=== PATIENT | female | born 1955 | race Caucasian/White ===

== ENCOUNTER 2023-01-10 23:44 | Emergency (ER) | payer MEDICARE, OTHER ==
[2023-01-10 23:49] LABS: Glucose,Whole Blood 129 mg/dL (70-110)
--- NOTE | 2023-01-11 00:28 | ED ---
General Adult HPI - General Source: EMS Mode of arrival: EMS <Taj Welch - Last Filed: 01/11/23 06:13> <Mendoza Us - Last Filed: 01/11/23 15:41> - General Chief complaint: Altered Mental Status Stated complaint: Altered Mental Time Seen by Provider: 01/10/23 23:48 - History of Present Illness Initial comments: Dictation was produced using [employer]To[employer] dictation software. please excuse any grammatical, word or spelling errors. Chief Complaint: 67-year-old female transferred from [facility] for mental status evaluation History of Present Illness: 67-year-old female she has multiple comorbidities. Patient is a poor historian. She presents to the emergency department via transfer from [facility] for altered mental status. She is also suicidal homicidal. Currently she was at her primary care physician's office as an and was sent to the emergency department for further evaluation. Patient has been having bad thoughts of wanting to kill herself. At [facility] she had blood work and imaging studies performed all of which were reportedly negative. The ROS documented in this emergency department record has been reviewed and confirmed by me. Those systems with pertinent positive or negative responses have been documented in the HPI. All other systems are other negative and/or noncontributory. (Taj Welch) - Related Data Allergies Allergy/AdvReac Type Severity Reaction Status Date / Time amoxicillin [From Augmentin] AdvReac Diarrhea Verified 01/11/23 09:52 clavulanic acid AdvReac Diarrhea Verified 01/11/23 09:52 [From Augmentin] doxycycline AdvReac Diarrhea Verified 01/11/23 09:52 Review of Systems ROS Other: All systems not noted in ROS Statement are negative. <Taj Welch - Last Filed: 01/11/23 06:13> ROS Other: All systems not noted in ROS Statement are negative. <Mendoza Us - Last Filed: 01/11/23 15:41> ROS Statement: Those systems with pertinent positive or pertinent negative responses have been documented in the HPI. Past Medical History Past Medical History: Atrial Fibrillation Past Psychological History: No Psychological Hx Reported Smoking Status: Never smoker Past Alcohol Use History: Occasional Past Drug Use History: None Reported <Taj Welch - Last Filed: 01/11/23 06:13> General Exam <Taj Welch - Last Filed: 01/11/23 06:13> - General Exam Comments Initial Comments: PHYSICAL EXAM: General Impression: Alert and oriented x3, not in acute distress HEENT: Normocephalic atraumatic, extra-ocular movements intact, pupils equal and reactive to light bilaterally, mucous membranes moist. Cardiovascular: Heart regular rate and rhythm Chest: Able to complete full sentences, no retractions, no tachypnea Abdomen: abdomen soft, non-tender, non-distended, no organomegaly Musculoskeletal: Pulses present and equal in all extremities, no peripheral edema Motor: no focal deficits noted Neurological: CN II-XII grossly intact, no focal motor or sensory deficits noted Skin: Intact with no visualized rashes Psych: Anxious (Taj Welch) Course <Taj Welch - Last Filed: 01/11/23 06:13> Vital Signs 01/10/23 01/11/23 23:50 06:16 Temperature 97.6 F Pulse Rate 77 98 Respiratory 16 22 Rate Blood Pressure 122/87 133/95 O2 Sat by Pulse 95 99 Oximetry - Reevaluation(s) Reevaluation #1: 01/11/23 00:28 Patient seen in trauma bay #2. Patient will be in no acute distress. Patient does seem anxious. Vital signs upon arrival are within acceptable limits. [place] sient documentation was reviewed. Labs were reviewed. CBC within acceptable limits. Coag panel within acceptable limits. Urinalysis is normal. Metabolic panel is unremarkable. Tox labs were negative. Patient appears to be medically stable. She does have significant comorbidities. Patient on multiple home medications. Patient will be cleared medically by me for EPS evaluation. (Taj Welch) Medical Decision Making <Taj Welch - Last Filed: 01/11/23 06:13> - Lab Data Result diagrams: 01/11/23 10:15 01/11/23 10:15 <Mendoza Us - Last Filed: 01/11/23 15:41> - Medical Decision Making Was pt. sent in by a medical professional or institution (, PA, SENIOR POLICY ADVISOR, urgent care, hospital, or snf...) When possible be specific @ -Sent from outside emergency department Did you speak to anyone other than the patient for history (EMS, parent, family, police, friend...)? What history was obtained from this source @ -With transferring physician from [facility] Did you review nursing and triage notes (agree or disagree)? Why? @ -I reviewed and agree with nursing and triage notes Were old charts reviewed (outside hosp., previous admission, EMS record, old EKG, old radiological studies, urgent care reports/EKG's, snf records)? Report findings @ -No old charts were reviewed Differential Diagnosis (chest pain, altered mental status, abdominal pain women, abdominal pain men, vaginal bleeding, musculoskeletal, weakness, fever, dyspnea, syncope, headache, dizziness, GI bleed, back pain, seizure, CVA, palpatations, mental health)? @ -Differential Mental Health: Depression, anxiety, bipolar, psychosis, schizophrenia, borderline personality, situational depression, adjustment disorder, behavioral disorder, brain tumor, malingering, substance abuse, encephalopathy, medication reaction, dementia, hypothyroidism, degenerative neurologic disorder, lupus.... This is not meant to be all-inclusive list EKG interpreted by me (3pts min.). @ -ase above X-rays interpreted by me (1pt min.). @ -None done CT interpreted by me (1pt min.). @ -None done U/S interpreted by me (1pt. min.). @ -None done What testing was considered but not performed or refused? (CT, X-rays, U/S, labs)? Why? @ -None What meds were considered but not given or refused? Why? @ -None Did you discuss the management of the patient with other professionals (professionals i.e. , PA, SENIOR POLICY ADVISOR, lab, RT, psych nurse, forensic social worker, truss driver helper, teacher, targeting acquisition officer, caser in)? Give summary @ -Case discussed EPS nurse recommended geriatric psych transfer Was smoking cessation discussed for >3mins.? @ -No Was critical care preformed (if so, how long)? @ -No Were there social determinants of health that impacted care today? How? (Homelessness, low income, unemployed, alcoholism, drug addiction, transportation, low edu. Level, literacy, decrease access to med. care, [facility], rehab)? @ -No Was there de-escalation of care discussed even if they declined (Discuss DNR or withdrawal of care, Hospice)? DNR status @ -No What co-morbidities impacted this encounter? (DM, HTN, Smoking, COPD, CAD, Cancer, CVA, ARF, Chemo, Hep., AIDS, mental health diagnosis, sleep apnea, morbid obesity)? @ -None Was patient admitted / discharged? Hospital course, mention meds given and route, prescriptions, significant lab abnormalities, going to OR and other pertinent info. @ -67-year-old female sent to our emergency department for altered mental status and psychiatric evaluation. Vital signs stable. Physical examination is benign. Patient clinical presentation more consistent with psychiatric illness. EPS evaluate patient recommended psych transfer Undiagnosed new problem with uncertain prognosis? @ -No Drug Therapy requiring intensive monitoring for toxicity (Heparin, Nitro, Insulin, Cardizem)? @ -No Were any procedures done? @ -No Diagnosis/symptom? Acute, or Chronic, or Acute on Chronic? Uncomplicated (without systemic symptoms) or Complicated (systemic symptoms)? @ -1. Psychiatric illness Side effects of treatment? @ -No Exacerbation, Progression, or Severe Exacerbation? @ -No Poses a threat to life or bodily function? How? (Chest pain, USA, IA, pneumonia, PE, COPD, DKA, ARF, appy, cholecystitis, CVA, Diverticulitis, Homicidal, Suicidal, threat to staff... and all critical care pts) @ -yes (Taj Welch) The patient had been evaluated, medically cleared and evaluated by EPS and initial plan was to transfer this patient for geriatric psychiatric care. There is a prolonged wait for geriatric care at this time. Ultimately the patient's is at bedside and the patient herself prefer to be discharged home with outpatient follow-up. I did reevaluate the patient she is not suicidal or homicidal. She is alert and I will respect the wishes of the patient and her to be discharged home. (Mendoza Us) - Lab Data Lab Results 01/10/23 01/11/23 01/11/23 Range/Units 23:47 10:15 10:15 WBC 9.8 (3.8-10.6) k/uL RBC 5.97 H (3.80-5.40) m/uL Hgb 18.9 H (11.4-16.0) gm/dL Hct 54.6 H (34.0-46.0) % MCV 91.4 (80.0-100.0) fL MCH 31.6 (25.0-35.0) pg MCHC 34.6 (31.0-37.0) g/dL RDW 14.3 (11.5-15.5) % Plt Count 189 (150-450) k/uL MPV 7.6 Neutrophils % 83 % Lymphocytes % 10 % Monocytes % 6 % Eosinophils % 1 % Basophils % 0 % Neutrophils # 8.1 H (1.3-7.7) k/uL Lymphocytes # 0.9 L (1.0-4.8) k/uL Monocytes # 0.6 (0-1.0) k/uL Eosinophils # 0.1 (0-0.7) k/uL Basophils # 0.0 (0-0.2) k/uL Sodium 142 (137-145) mmol/L Potassium 3.5 (3.5-5.1) mmol/L Chloride 103 (98-107) mmol/L Carbon Dioxide 25 (22-30) mmol/L Anion Gap 14 mmol/L BUN 53 H (7-17) mg/dL Creatinine 1.07 H (0.52-1.04) mg/dL Est GFR (CKD-EPI)AfAm 63 (>60 ml/min/1.73 sqM) Est GFR (CKD-EPI)NonAf 55 (>60 ml/min/1.73 sqM) Glucose 157 H (74-99) mg/dL POC Glucose (mg/dL) 129 H (70-110) mg/dL POC Glu Cooling Room Attendant ID Britt Hawkins Calcium 9.5 (8.4-10.2) mg/dL Total Bilirubin 1.5 H (0.2-1.3) mg/dL AST 34 (14-36) U/L ALT 23 (4-34) U/L Alkaline Phosphatase 118 (38-126) U/L Total Protein 8.8 H (6.3-8.2) g/dL Albumin 4.7 (3.5-5.0) g/dL Urine Color Urine Appearance (Clear) Urine pH (5.0-8.0) Ur Specific [place] (1.001-1.035) Urine Protein (Negative) Urine Glucose (UA) (Negative) Urine Ketones (Negative) Urine Blood (Negative) Urine Nitrite (Negative) Urine Bilirubin (Negative) Urine Urobilinogen (<2.0) mg/dL Ur Leukocyte Esterase (Negative) Urine Opiates Screen (NotDetected) Ur Oxycodone Screen (NotDetected) Urine Methadone Screen (NotDetected) Ur Propoxyphene Screen (NotDetected) Ur Barbiturates Screen (NotDetected) U Tricyclic Antidepress (NotDetected) Ur Phencyclidine Scrn (NotDetected) Ur Amphetamines Screen (NotDetected) U Methamphetamines Scrn (NotDetected) U Benzodiazepines Scrn (NotDetected) Urine Cocaine Screen (NotDetected) U Marijuana (THC) Screen (NotDetected) Influenza Type A (PCR) (Not Detectd) Influenza Type B (PCR) (Not Detectd) RSV (PCR) (Not Detectd) SARS-CoV-2 (PCR) (Not Detectd) 01/11/23 01/11/23 Range/Units 10:15 13:14 WBC (3.8-10.6) k/uL RBC (3.80-5.40) m/uL Hgb (11.4-16.0) gm/dL Hct (34.0-46.0) % MCV (80.0-100.0) fL MCH (25.0-35.0) pg MCHC (31.0-37.0) g/dL RDW (11.5-15.5) % Plt Count (150-450) k/uL MPV Neutrophils % % Lymphocytes % % Monocytes % % Eosinophils % % Basophils % % Neutrophils # (1.3-7.7) k/uL Lymphocytes # (1.0-4.8) k/uL Monocytes # (0-1.0) k/uL Eosinophils # (0-0.7) k/uL Basophils # (0-0.2) k/uL Sodium (137-145) mmol/L Potassium (3.5-5.1) mmol/L Chloride (98-107) mmol/L Carbon Dioxide (22-30) mmol/L Anion Gap mmol/L BUN (7-17) mg/dL Creatinine (0.52-1.04) mg/dL Est GFR (CKD-EPI)AfAm (>60 ml/min/1.73 sqM) Est GFR (CKD-EPI)NonAf (>60 ml/min/1.73 sqM) Glucose (74-99) mg/dL POC Glucose (mg/dL) (70-110) mg/dL POC Glu Cooling Room Attendant ID Calcium (8.4-10.2) mg/dL Total Bilirubin (0.2-1.3) mg/dL AST (14-36) U/L ALT (4-34) U/L Alkaline Phosphatase (38-126) U/L Total Protein (6.3-8.2) g/dL Albumin (3.5-5.0) g/dL Urine Color Yellow Urine Appearance Clear (Clear) Urine pH 5.0 (5.0-8.0) Ur Specific [place] 1.011 (1.001-1.035) Urine Protein Negative (Negative) Urine Glucose (UA) Negative (Negative) Urine Ketones Trace H (Negative) Urine Blood Negative (Negative) Urine Nitrite Negative (Negative) Urine Bilirubin Negative (Negative) Urine Urobilinogen <2.0 (<2.0) mg/dL Ur Leukocyte Esterase Negative (Negative) Urine Opiates Screen Not Detected (NotDetected) Ur Oxycodone Screen Not Detected (NotDetected) Urine Methadone Screen Not Detected (NotDetected) Ur Propoxyphene Screen Not Detected (NotDetected) Ur Barbiturates Screen Not Detected (NotDetected) U Tricyclic Antidepress Not Detected (NotDetected) Ur Phencyclidine Scrn Not Detected (NotDetected) Ur Amphetamines Screen Not Detected (NotDetected) U Methamphetamines Scrn Not Detected (NotDetected) U Benzodiazepines Scrn Not Detected (NotDetected) Urine Cocaine Screen Not Detected (NotDetected) U Marijuana (THC) Screen Not Detected (NotDetected) Influenza Type A (PCR) Not Detected (Not Detectd) Influenza Type B (PCR) Not Detected (Not Detectd) RSV (PCR) Not Detected (Not Detectd) SARS-CoV-2 (PCR) Not Detected (Not Detectd) Disposition <Taj Welch - Last Filed: 01/11/23 06:13> Is patient prescribed a controlled substance at d/c from ED?: No Time of Disposition: 15:41 <Mendoza Us - Last Filed: 01/11/23 15:41> Clinical Impression: Suicidal ideation, Depression Disposition: HOME SELF-CARE Condition: Fair Instructions (If sedation given, give patient instructions): Altered Mental Status (ED), Depression (ED) Additional Instructions: Please follow up as discussed with the EPS nurse please return with worsening or changing symptoms. Referrals: None,Stated [Primary Care Provider] - 1-2 days
[2023-01-11 10:24] LABS: Basophils % (A) 0 %; Eosinophils # (A) 0.1 k/uL (0-0.7); Eosinophils % (A) 1 %; HCT 54.6 % (34.0-46.0); HGB 18.9 gm/dL (11.4-16.0); Lymphocytes # (A) 0.9 k/uL (1.0-4.8); Lymphocytes % (A) 10 %; MCH 31.6 pg (25.0-35.0); MCHC 34.6 g/dL (31.0-37.0); MCV 91.4 fL (80.0-100.0); Mean Platelet Volume 7.6; Monocytes # (A) 0.6 k/uL (0-1.0); Monocytes % (A) 6 %; Neutrophils # (A) 8.1 k/uL (1.3-7.7); Neutrophils % (A) 83 %; Platelet Count 189 k/uL (150-450); RBC 5.97 m/uL (3.80-5.40); RDW 14.3 % (11.5-15.5); WBC 9.8 k/uL (3.8-10.6)
[2023-01-11] MEDS ORDERED: LORazepam 1 MG TAB PO STA (10:36)
[2023-01-11 10:41] LABS: ALT 23 U/L (4-34); AST 34 U/L (14-36); African American GFR (CKD) 63 (>60 ml/min/1.73 sqM); Albumin 4.7 g/dL (3.5-5.0); Alkaline Phosphatase 118 U/L (38-126); Anion Gap 14 mmol/L; Blood Urea Nitrogen 53 mg/dL (7-17); Calcium 9.5 mg/dL (8.4-10.2); Carbon Dioxide 25 mmol/L (22-30); Chloride 103 mmol/L (98-107); Glucose 157 mg/dL (74-99); Non-African American GFR(CKD) 55 (>60 ml/min/1.73 sqM); Potassium 3.5 mmol/L (3.5-5.1); Sodium 142 mmol/L (137-145); Total Bilirubin 1.5 mg/dL (0.2-1.3); Total Protein 8.8 g/dL (6.3-8.2)
[2023-01-11 13:24] LABS: Appearance,Urine Clear (Clear); Bilirubin,Urine Negative (Negative); Blood,Urine Negative (Negative); Color,Urine Yellow; Glucose,Urine (UA) Negative (Negative); Ketones,Urine Trace (Negative); Leukocyte Esterase,Urine Negative (Negative); Nitrite,Urine Negative (Negative); Protein,Urine Negative (Negative); Specific Gravity,Urine 1.011 (1.001-1.035); Urobilinogen,Urine <2.0 mg/dL (<2.0)
[2023-01-11 13:38] LABS: Amphetamine Screen,Urine Not Detected (NotDetected); Barbiturate Screen,Urine Not Detected (NotDetected); Benzodiazepines Screen,Urine Not Detected (NotDetected); Cocaine Screen,Urine Not Detected (NotDetected); Methadone Screen, Urine Not Detected (NotDetected); Opiate Screen,Urine Not Detected (NotDetected); Oxycodone Screen, Urine Not Detected (NotDetected); Phencyclidine Screen,Urine Not Detected (NotDetected); Tricyclic Antidepressant,Urine Not Detected (NotDetected); Urn Cannabinoid Scrn Not Detected (NotDetected)
[2023-01-11 15:59] VITALS: BP 138/96; PULSE 89; RESP 18; TEMP 98.1
== END 2023-01-11 16:00 | disposition home or self-care (01) ==
LOC: EC 23:44
DX: F32.A Depression, unspecified (principal); R45.851 Suicidal ideations; Z20.822 Contact with and (suspected) exposure to COVID-19; Z88.0 Allergy status to penicillin; Z88.1 Allergy status to other antibiotic agents
CPT/HCPCS: 36415; 80053; 80306; 81003; 82075; 85025; 87636; 99285

== ENCOUNTER 2023-01-16 10:33 | Emergency (ER) | payer MEDICARE, OTHER ==
--- NOTE | 2023-01-16 12:37 | ED ---
General Adult HPI <Lyle Barone - Last Filed: 01/16/23 21:48> - General Source: patient, EMS, RN notes reviewed Mode of arrival: EMS Limitations: altered mental status <Gavino Gardner - Last Filed: 01/18/23 21:01> - General Chief complaint: Altered Mental Status Stated complaint: AMS Time Seen by Provider: 01/16/23 12:02 - History of Present Illness Initial comments: Patient is a pleasant [age]-year-old female presenting to the emergency department with concern for altered mental status. Patient is a poor historian and does not offer much history. Patient does request help however will not state why she needs help her what is bothering her. (Gavino Gardner) - Related Data Home Medications Medication Instructions Recorded Confirmed Famotidine 20 mg PO BID 01/11/23 01/16/23 Furosemide [Lasix] 20 mg PO DAILY 01/11/23 01/16/23 Levofloxacin [Levaquin] 500 mg PO DAILY 01/11/23 01/16/23 Rivaroxaban [Xarelto] 20 mg PO HS 01/11/23 01/16/23 carvediloL [Coreg] 12.5 mg PO BID 01/11/23 01/16/23 methIMAzole [Tapazole] 5 mg PO DAILY 01/11/23 01/16/23 Allergies Allergy/AdvReac Type Severity Reaction Status Date / Time amoxicillin [From Augmentin] AdvReac Diarrhea Verified 01/16/23 12:02 clavulanic acid AdvReac Diarrhea Verified 01/16/23 12:02 [From Augmentin] doxycycline AdvReac Diarrhea Verified 01/16/23 12:02 Review of Systems ROS Other: All systems not noted in ROS Statement are negative. <Lyle Barone - Last Filed: 01/16/23 21:48> ROS Other: All systems not noted in ROS Statement are negative. Limitations: ROS unobtainable due to patients medical condition <Gavino Gardner - Last Filed: 01/18/23 21:01> ROS Statement: Those systems with pertinent positive or pertinent negative responses have been documented in the HPI. Past Medical History Past Medical History: Atrial Fibrillation Past Psychological History: No Psychological Hx Reported Smoking Status: Never smoker Past Alcohol Use History: Occasional Past Drug Use History: None Reported <Gavino Gardner - Last Filed: 01/18/23 21:01> General Exam Limitations: altered mental status General appearance: alert, in no apparent distress Head exam: Present: atraumatic Eye exam: Present: normal appearance, PERRL, EOMI ENT exam: Present: mucous membranes dry Neck exam: Present: normal inspection. Absent: tenderness, meningismus Respiratory exam: Present: normal lung sounds bilaterally Cardiovascular Exam: Present: regular rate, irregular rhythm GI/Abdominal exam: Present: soft. Absent: tenderness Extremities exam: Present: normal inspection Neurological exam: Present: alert. Absent: motor sensory deficit Psychiatric exam: Present: depressed (Patient is tearful and requesting help however offered no further history) Skin exam: Present: normal color <Gavino Gardner - Last Filed: 01/18/23 21:01> Course Vital Signs 01/16/23 01/16/23 01/16/23 11:02 13:00 14:30 Temperature 97.0 F L Pulse Rate 58 L 64 59 L Respiratory 18 20 16 Rate Blood Pressure 138/92 141/108 128/113 O2 Sat by Pulse 96 96 95 Oximetry 01/16/23 01/16/23 01/16/23 15:00 15:30 16:00 Temperature Pulse Rate 63 62 58 L Respiratory 20 22 19 Rate Blood Pressure 131/87 151/95 124/84 O2 Sat by Pulse 97 96 96 Oximetry 01/16/23 01/16/23 01/16/23 16:30 17:00 17:30 Temperature Pulse Rate 65 64 73 Respiratory 22 20 21 Rate Blood Pressure 143/100 148/96 129/87 O2 Sat by Pulse 96 96 96 Oximetry 01/16/23 01/17/23 19:00 00:26 Temperature 98.1 F Pulse Rate 70 78 Respiratory 16 18 Rate Blood Pressure 135/90 138/92 O2 Sat by Pulse 96 98 Oximetry EKG Findings - EKG Results: EKG: interpreted by ERMD (Nonspecific ST-T), normal axis, normal QRS EKG shows: atrial fibrillation <Gavino Gardner - Last Filed: 01/18/23 21:01> Medical Decision Making - Lab Data Result diagrams: 01/16/23 12:54 01/16/23 12:54 <Lyle Barone - Last Filed: 01/16/23 21:48> - Lab Data Result diagrams: 01/16/23 12:54 01/16/23 12:54 <Gavino Gardner - Last Filed: 01/18/23 21:01> - Medical Decision Making I interviewed the patient for purpose of filing the clinical certification. The patient tearful, stating that she wants to go home but cannot go home. Questioned about homicidal ideation she agrees. (Lyle Barone) Case was discussed with Dr. Dudley. Previous visit reviewed. Patient has been emotional at times with evaluation. We will have mental health services evaluate patient. (Gavino Gardner) - Lab Data Lab Results 01/16/23 01/16/23 01/16/23 Range/Units 12:54 12:54 12:54 WBC 8.0 (3.8-10.6) k/uL RBC 5.54 H (3.80-5.40) m/uL Hgb 17.5 H (11.4-16.0) gm/dL Hct 51.0 H (34.0-46.0) % MCV 92.1 (80.0-100.0) fL MCH 31.7 (25.0-35.0) pg MCHC 34.4 (31.0-37.0) g/dL RDW 14.3 (11.5-15.5) % Plt Count 160 (150-450) k/uL MPV 8.0 Neutrophils % 79 % Lymphocytes % 13 % Monocytes % 6 % Eosinophils % 1 % Basophils % 1 % Neutrophils # 6.3 (1.3-7.7) k/uL Lymphocytes # 1.0 (1.0-4.8) k/uL Monocytes # 0.5 (0-1.0) k/uL Eosinophils # 0.0 (0-0.7) k/uL Basophils # 0.1 (0-0.2) k/uL PT 12.5 H (9.0-12.0) sec INR 1.2 H (<1.2) APTT 23.5 (22.0-30.0) sec Sodium (137-145) mmol/L Potassium (3.5-5.1) mmol/L Chloride (98-107) mmol/L Carbon Dioxide (22-30) mmol/L Anion Gap mmol/L BUN (7-17) mg/dL Creatinine (0.52-1.04) mg/dL Est GFR (CKD-EPI)AfAm (>60 ml/min/1.73 sqM) Est GFR (CKD-EPI)NonAf (>60 ml/min/1.73 sqM) Glucose (74-99) mg/dL Calcium (8.4-10.2) mg/dL Total Bilirubin (0.2-1.3) mg/dL AST (14-36) U/L ALT (4-34) U/L Alkaline Phosphatase (38-126) U/L Troponin I (0.000-0.034) ng/mL Total Protein (6.3-8.2) g/dL Albumin (3.5-5.0) g/dL Urine Color Urine Appearance (Clear) Urine pH (5.0-8.0) Ur Specific [place] (1.001-1.035) Urine Protein (Negative) Urine Glucose (UA) (Negative) Urine Ketones (Negative) Urine Blood (Negative) Urine Nitrite (Negative) Urine Bilirubin (Negative) Urine Urobilinogen (<2.0) mg/dL Ur Leukocyte Esterase (Negative) Urine Opiates Screen Not Detected (NotDetected) Ur Oxycodone Screen Not Detected (NotDetected) Urine Methadone Screen Not Detected (NotDetected) Ur Propoxyphene Screen Not Detected (NotDetected) Ur Barbiturates Screen Not Detected (NotDetected) U Tricyclic Antidepress Not Detected (NotDetected) Ur Phencyclidine Scrn Not Detected (NotDetected) Ur Amphetamines Screen Not Detected (NotDetected) U Methamphetamines Scrn Not Detected (NotDetected) U Benzodiazepines Scrn Not Detected (NotDetected) Urine Cocaine Screen Not Detected (NotDetected) U Marijuana (THC) Screen Not Detected (NotDetected) Coronavirus (PCR) (Not Detectd) 01/16/23 01/16/23 01/16/23 Range/Units 12:54 12:54 12:54 WBC (3.8-10.6) k/uL RBC (3.80-5.40) m/uL Hgb (11.4-16.0) gm/dL Hct (34.0-46.0) % MCV (80.0-100.0) fL MCH (25.0-35.0) pg MCHC (31.0-37.0) g/dL RDW (11.5-15.5) % Plt Count (150-450) k/uL MPV Neutrophils % % Lymphocytes % % Monocytes % % Eosinophils % % Basophils % % Neutrophils # (1.3-7.7) k/uL Lymphocytes # (1.0-4.8) k/uL Monocytes # (0-1.0) k/uL Eosinophils # (0-0.7) k/uL Basophils # (0-0.2) k/uL PT (9.0-12.0) sec INR (<1.2) APTT (22.0-30.0) sec Sodium 133 L (137-145) mmol/L Potassium 3.4 L (3.5-5.1) mmol/L Chloride 104 (98-107) mmol/L Carbon Dioxide 26 (22-30) mmol/L Anion Gap 3 mmol/L BUN 36 H (7-17) mg/dL Creatinine 0.76 (0.52-1.04) mg/dL Est GFR (CKD-EPI)AfAm >90 (>60 ml/min/1.73 sqM) Est GFR (CKD-EPI)NonAf 83 (>60 ml/min/1.73 sqM) Glucose 113 H (74-99) mg/dL Calcium 8.4 (8.4-10.2) mg/dL Total Bilirubin 1.5 H (0.2-1.3) mg/dL AST 42 H (14-36) U/L ALT 22 (4-34) U/L Alkaline Phosphatase 84 (38-126) U/L Troponin I 0.023 (0.000-0.034) ng/mL Total Protein 7.2 (6.3-8.2) g/dL Albumin 3.8 (3.5-5.0) g/dL Urine Color Yellow Urine Appearance Clear (Clear) Urine pH 5.0 (5.0-8.0) Ur Specific [place] 1.016 (1.001-1.035) Urine Protein Negative (Negative) Urine Glucose (UA) Negative (Negative) Urine Ketones Trace H (Negative) Urine Blood Negative (Negative) Urine Nitrite Negative (Negative) Urine Bilirubin Negative (Negative) Urine Urobilinogen <2.0 (<2.0) mg/dL Ur Leukocyte Esterase Negative (Negative) Urine Opiates Screen (NotDetected) Ur Oxycodone Screen (NotDetected) Urine Methadone Screen (NotDetected) Ur Propoxyphene Screen (NotDetected) Ur Barbiturates Screen (NotDetected) U Tricyclic Antidepress (NotDetected) Ur Phencyclidine Scrn (NotDetected) Ur Amphetamines Screen (NotDetected) U Methamphetamines Scrn (NotDetected) U Benzodiazepines Scrn (NotDetected) Urine Cocaine Screen (NotDetected) U Marijuana (THC) Screen (NotDetected) Coronavirus (PCR) (Not Detectd) 01/16/23 Range/Units 22:26 WBC (3.8-10.6) k/uL RBC (3.80-5.40) m/uL Hgb (11.4-16.0) gm/dL Hct (34.0-46.0) % MCV (80.0-100.0) fL MCH (25.0-35.0) pg MCHC (31.0-37.0) g/dL RDW (11.5-15.5) % Plt Count (150-450) k/uL MPV Neutrophils % % Lymphocytes % % Monocytes % % Eosinophils % % Basophils % % Neutrophils # (1.3-7.7) k/uL Lymphocytes # (1.0-4.8) k/uL Monocytes # (0-1.0) k/uL Eosinophils # (0-0.7) k/uL Basophils # (0-0.2) k/uL PT (9.0-12.0) sec INR (<1.2) APTT (22.0-30.0) sec Sodium (137-145) mmol/L Potassium (3.5-5.1) mmol/L Chloride (98-107) mmol/L Carbon Dioxide (22-30) mmol/L Anion Gap mmol/L BUN (7-17) mg/dL Creatinine (0.52-1.04) mg/dL Est GFR (CKD-EPI)AfAm (>60 ml/min/1.73 sqM) Est GFR (CKD-EPI)NonAf (>60 ml/min/1.73 sqM) Glucose (74-99) mg/dL Calcium (8.4-10.2) mg/dL Total Bilirubin (0.2-1.3) mg/dL AST (14-36) U/L ALT (4-34) U/L Alkaline Phosphatase (38-126) U/L Troponin I (0.000-0.034) ng/mL Total Protein (6.3-8.2) g/dL Albumin (3.5-5.0) g/dL Urine Color Urine Appearance (Clear) Urine pH (5.0-8.0) Ur Specific [place] (1.001-1.035) Urine Protein (Negative) Urine Glucose (UA) (Negative) Urine Ketones (Negative) Urine Blood (Negative) Urine Nitrite (Negative) Urine Bilirubin (Negative) Urine Urobilinogen (<2.0) mg/dL Ur Leukocyte Esterase (Negative) Urine Opiates Screen (NotDetected) Ur Oxycodone Screen (NotDetected) Urine Methadone Screen (NotDetected) Ur Propoxyphene Screen (NotDetected) Ur Barbiturates Screen (NotDetected) U Tricyclic Antidepress (NotDetected) Ur Phencyclidine Scrn (NotDetected) Ur Amphetamines Screen (NotDetected) U Methamphetamines Scrn (NotDetected) U Benzodiazepines Scrn (NotDetected) Urine Cocaine Screen (NotDetected) U Marijuana (THC) Screen (NotDetected) Coronavirus (PCR) Not Detected (Not Detectd) Disposition <Lyle Barone - Last Filed: 01/16/23 21:48> Is patient prescribed a controlled substance at d/c from ED?: No <Gavino Gardner - Last Filed: 01/18/23 21:01> Clinical Impression: Depression Disposition: TRANSFER TO PSYCH HOSP/UNIT Referrals: None,Stated [Primary Care Provider] - 1-2 days
[2023-01-16 13:26] LABS: Basophils # (A) 0.1 k/uL (0-0.2); Basophils % (A) 1 %; Eosinophils % (A) 1 %; HGB 17.5 gm/dL (11.4-16.0); Lymphocytes % (A) 13 %; MCH 31.7 pg (25.0-35.0); MCHC 34.4 g/dL (31.0-37.0); MCV 92.1 fL (80.0-100.0); Monocytes # (A) 0.5 k/uL (0-1.0); Monocytes % (A) 6 %; Neutrophils # (A) 6.3 k/uL (1.3-7.7); Neutrophils % (A) 79 %; Platelet Count 160 k/uL (150-450); RBC 5.54 m/uL (3.80-5.40); RDW 14.3 % (11.5-15.5)
[2023-01-16 13:43] LABS: ALT 22 U/L (4-34); African American GFR (CKD) >90 (>60 ml/min/1.73 sqM); Albumin 3.8 g/dL (3.5-5.0); Anion Gap 3 mmol/L; Blood Urea Nitrogen 36 mg/dL (7-17); Calcium 8.4 mg/dL (8.4-10.2); Carbon Dioxide 26 mmol/L (22-30); Chloride 104 mmol/L (98-107); Glucose 113 mg/dL (74-99); Non-African American GFR(CKD) 83 (>60 ml/min/1.73 sqM); Sodium 133 mmol/L (137-145); Total Bilirubin 1.5 mg/dL (0.2-1.3); Total Protein 7.2 g/dL (6.3-8.2)
[2023-01-16 13:48] LABS: INR 1.2 (<1.2); Partial Thromboplastin Time 23.5 sec (22.0-30.0); Prothrombin Time 12.5 sec (9.0-12.0)
[2023-01-16 13:53] LABS: AST 42 U/L (14-36); Alkaline Phosphatase 84 U/L (38-126); Potassium 3.4 mmol/L (3.5-5.1)
--- NOTE | 2023-01-16 14:11 | CT ---
EXAMINATION TYPE: CT brain wo con DATE OF EXAM: 01/16/2023 COMPARISON: Outside exam 01/10/2023 HISTORY: 67-year-old female confusion, altered mental status TECHNIQUE: Examination was done in axial plane without intravenous contrast. Coronal and sagittal r econstructions performed. CT DLP: 1129.4 mGycm Automated exposure control for dose reduction was used. FINDINGS: There is no evidence of acute intracranial hemorrhage, acute ischemic changes, mass, mass-effect, or extra-axial fluid collection. There is no effacement of cerebral sulci or basal subarachnoid cister ns. There is no hydrocephalus. There is no midline shift. Skaggs-white matter distinction is preserv ed. Scattered dental caries. Paranasal sinuses and mastoid air cells well pneumatized. Orbits and globes are intact. IMPRESSION: No acute intracranial abnormality seen.
--- NOTE | 2023-01-16 14:25 | XR ---
EXAMINATION TYPE: XR chest 2V DATE OF EXAM: 01/16/2023 COMPARISON: None INDICATION: Altered mental status TECHNIQUE: Frontal and lateral views of the chest are obtained. FINDINGS: The heart size is normal. The pulmonary vasculature is normal. The lungs are clear. IMPRESSION: 1. No acute pulmonary process.
[2023-01-16 15:01] LABS: Appearance,Urine Clear (Clear); Bilirubin,Urine Negative (Negative); Blood,Urine Negative (Negative); Color,Urine Yellow; Glucose,Urine (UA) Negative (Negative); Ketones,Urine Trace (Negative); Leukocyte Esterase,Urine Negative (Negative); Nitrite,Urine Negative (Negative); Protein,Urine Negative (Negative); Specific Gravity,Urine 1.016 (1.001-1.035); Urobilinogen,Urine <2.0 mg/dL (<2.0)
[2023-01-16 15:35] LABS: Amphetamine Screen,Urine Not Detected (NotDetected); Barbiturate Screen,Urine Not Detected (NotDetected); Benzodiazepines Screen,Urine Not Detected (NotDetected); Cocaine Screen,Urine Not Detected (NotDetected); Methadone Screen, Urine Not Detected (NotDetected); Opiate Screen,Urine Not Detected (NotDetected); Oxycodone Screen, Urine Not Detected (NotDetected); Phencyclidine Screen,Urine Not Detected (NotDetected); Tricyclic Antidepressant,Urine Not Detected (NotDetected); Urn Cannabinoid Scrn Not Detected (NotDetected)
[2023-01-16] MEDS ORDERED: POTASSIUM CHLORIDE ER 20 MEQ TAB.ER PO STA (19:01)
[2023-01-16] MEDS ORDERED: SODIUM CHLORIDE 0.9% 1,000 ML IV ONE (19:01)
[2023-01-16] MEDS ORDERED: carvediloL 12.5 MG TAB PO SCH (19:30)
[2023-01-16] MEDS ORDERED: FAMOTIDINE 20 MG TAB PO SCH (21:00)
[2023-01-16] MEDS ORDERED: RIVAROXABAN 20 MG TAB PO SCH (21:00)
[2023-01-17 00:27] VITALS: BP 138/92; PULSE 78; RESP 18; TEMP 98.1
[2023-01-17] MEDS ORDERED: methIMAzole 5 MG TAB PO SCH (09:00)
== END 2023-01-17 00:27 ==
LOC: EC 10:33
DX: F32.A Depression, unspecified (principal); I48.91 Unspecified atrial fibrillation; Z79.01 Long term (current) use of anticoagulants; Z88.0 Allergy status to penicillin; Z88.6 Allergy status to analgesic agent; Z88.8 Allergy status to other drugs, medicaments and biological substances; Z20.822 Contact with and (suspected) exposure to COVID-19
CPT/HCPCS: 36415; 70450; 71046; 80053; 80306; 81003; 82075; 84484; 85025; 85610; 85730; 87635; 93005; 96360; 99285

== ENCOUNTER 2024-01-07 22:45 | Inpatient (IN) | payer MEDICARE, OTHER ==
[2024-01-07] MEDS ORDERED: HEPARIN SODIUM 1,000 UN/ML (10ML VL) IV PRN (23:04)
--- NOTE | 2024-01-07 23:09 | ED ---
General Adult HPI - General Chief complaint: Altered Mental Status Stated complaint: PE Time Seen by Provider: 01/07/24 22:47 Source: patient, EMS Mode of arrival: EMS Limitations: no limitations - History of Present Illness Initial comments: Dictation was produced using [employer] dictation software. please excuse any grammatical, word or spelling errors. Chief Complaint: 68-year-old female transferred from outside hospital for UTI, encephalopathy and PE History of Present Illness: Patient 68-year-old female she is a poor historian. According to transfer documentation patient was found altered at home. She was worked up at [facility] where she was found to have multiple subsegmental PEs, UTI and encephalopathy. She had extensive workup was given doxycycline, heparin and Rocephin. Patient allegedly has a history of bipolar disease. A pparently there was concern that patient is noncompliant with her medications. Patient has no complaints. Unable to obtain ROS secondary to patient's mental status - Related Data Home Medications Medication Instructions Recorded Confirmed Famotidine 20 mg PO BID 01/11/23 01/16/23 Furosemide [Lasix] 20 mg PO DAILY 01/11/23 01/16/23 Levofloxacin [Levaquin] 500 mg PO DAILY 01/11/23 01/16/23 Rivaroxaban [Xarelto] 20 mg PO HS 01/11/23 01/16/23 carvediloL [Coreg] 12.5 mg PO BID 01/11/23 01/16/23 methIMAzole [Tapazole] 5 mg PO DAILY 01/11/23 01/16/23 Allergies Allergy/AdvReac Type Severity Reaction Status Date / Time amoxicillin [From Augmentin] AdvReac Diarrhea Verified 01/16/23 12:02 clavulanic acid AdvReac Diarrhea Verified 01/16/23 12:02 [From Augmentin] doxycycline AdvReac Diarrhea Verified 01/16/23 12:02 Review of Systems ROS Statement: Those systems with pertinent positive or pertinent negative responses have been documented in the HPI. ROS Other: All systems not noted in ROS Statement are negative. Past Medical History Past Medical History: Atrial Fibrillation History of Any Multi-Drug Resistant Organisms: None Reported Additional Past Surgical History / Comment(s): "3 c-sections and a knee surgery" Past Psychological History: No Psychological Hx Reported Smoking Status: Never smoker Past Alcohol Use History: Occasional Past Drug Use History: None Reported General Exam - General Exam Comments Initial Comments: PHYSICAL EXAM: General Impression: Alert and oriented x3, not in acute distress HEENT: Normocephalic atraumatic, extra-ocular movements intact, pupils equal and reactive to light bilaterally, mucous membranes moist. Cardiovascular: Heart regular rate and rhythm Chest: Able to complete full sentences, no retractions, no tachypnea Abdomen: abdomen soft, non-tender, non-distended, no organomegaly Musculoskeletal: Pulses present and equal in all extremities, no peripheral edema Motor: no focal deficits noted Neurological: CN II-XII grossly intact, no focal motor or sensory deficits noted Skin: Intact with no visualized rashes Psych: paranoid, tangential speech Limitations: no limitations Course Vital Signs 01/07/24 22:55 Temperature 97.3 F L Pulse Rate 82 Respiratory 18 Rate Blood Pressure 156/102 O2 Sat by Pulse 100 Oximetry EKG Findings - EKG Comments: EKG Findings:: My EKG interpretation: Ventricular rate 70, A-fib, QRS 89, QTc 410. , no QTC prolongation, no ST or T-wave changes noted. Patient has a history of A-fib.. Overall, this EKG is unremarkable Medical Decision Making - Medical Decision Making Was pt. sent in by a medical professional or institution (, PA, COOK APPRENTICE, urgent care, hospital, or fdc...) When possible be specific @ -Transferred from outside hospital Did you speak to anyone other than the patient for history (EMS, parent, family, police, friend...)? What history was obtained from this source @ -No Did you review nursing and triage notes (agree or disagree)? Why? @ -I reviewed and agree with nursing and triage notes Were old charts reviewed (outside hosp., previous admission, EMS record, old EKG, old radiological studies, urgent care reports/EKG's, fdc records)? Report findings @ -Transfer notes reviewed as described above Differential Diagnosis (chest pain, altered mental status, abdominal pain women, abdominal pain men, vaginal bleeding, musculoskeletal, weakness, fever, dyspnea, syncope, headache, dizziness, GI bleed, back pain, seizure, CVA, palpatations, mental health)? @ -Differential Dyspnea: Coronary syndrome, arrhythmia, tamponade, asthma, COPD, pulmonary embolism, pneumonia, pneumothorax, pulmonary effusion, anaphylaxis, diabetic ketoacidosis, flailed chest, pulmonary contusion, diaphragmatic rupture, anemia, neuromusc ular, this is not meant to be an all-inclusive list. EKG interpreted by me (3pts min.). @ -See above X-rays interpreted by me (1pt min.). @ -None done CT interpreted by me (1pt min.). @ -None done U/S interpreted by me (1pt. min.). @ -None done What testing was considered but not performed or refused? (CT, X-rays, U/S, labs)? Why? @ -None What meds were considered but not given or refused? Why? @ -None Did you discuss the management of the patient with other professionals (professionals i.e. , PA, COOK APPRENTICE, lab, RT, psych nurse, social service agency director, playground director, teacher, community cultural development officer, case monitor)? Give summary @ -Case discussed with hospitalist for admission. Was smoking cessation discussed for >3mins.? @ -No Was critical care preformed (if so, how long)? @ -No Were there social determinants of health that impacted care today? How? (Homelessness, low income, unemployed, alcoholism, drug addiction, transportation, low edu. Level, literacy, decrease access to med. care, skilled nursing, rehab)? @ -No Was there de-escalation of care discussed even if they declined (Discuss DNR or withdrawal of care, Hospice)? DNR status @ -No What co-morbidities impacted this encounter? (DM, HTN, Smoking, COPD, CAD, Cancer, CVA, ARF, Chemo, Hep., AIDS, mental health diagnosis, sleep apnea, morbid obesity)? @ -None Was patient admitted / discharged? Hospital course, mention meds given and route, prescriptions, significant lab abnormalities, going to OR and other pertinent info. @ -68-year-old female transferred from outside emergency department for PEs and UTI and encephalopathy. Vital signs are within acceptable limits. Patient well-appearing at the bedside. She does have some psychotic features. Patient will be admitted. She is continued on heparin. Patient received ceftriaxone and doxycycline. Will be admitted to medicine. Undiagnosed new problem with uncertain prognosis? @ -No Drug Therapy requiring intensive monitoring for toxicity (Heparin, Nitro, Insulin, Cardizem)? @ -No Were any procedures done? @ -No Diagnosis/symptom? Acute, or Chronic, or Acute on Chronic? Uncomplicated (without systemic symptoms) or Complicated (systemic symptoms)? @ -PE, UTI, psychosis Side effects of treatment? @ -No Exacerbation, Progression, or Severe Exacerbation? @ -No Poses a threat to life or bodily function? How? (Chest pain, [place], [place], pneumonia, PE, COPD, DKA, ARF, appy, cholecystitis, CVA, Diverticulitis, Homicidal, Suicidal, threat to staff... and all critical care pts) @ -yes - Lab Data Result diagrams: 01/07/24 23:15 Lab Results 01/07/24 01/07/24 Range/Units 23:15 23:15 WBC 8.7 (3.8-10.6) k/uL RBC 5.20 (3.80-5.40) m/uL Hgb 16.3 H (11.4-16.0) gm/dL Hct 47.7 H (34.0-46.0) % MCV 91.8 (80.0-100.0) fL MCH 31.4 (25.0-35.0) pg MCHC 34.2 (31.0-37.0) g/dL RDW 14.4 (11.5-15.5) % Plt Count 173 (150-450) k/uL MPV 7.7 Neutrophils % 81 % Lymphocytes % 13 % Monocytes % 5 % Eosinophils % 1 % Basophils % 0 % Neutrophils # 7.0 (1.3-7.7) k/uL Lymphocytes # 1.1 (1.0-4.8) k/uL Monocytes # 0.4 (0-1.0) k/uL Eosinophils # 0.1 (0-0.7) k/uL Basophils # 0.0 (0-0.2) k/uL Troponin I <0.012 (0.000-0.034) ng/mL Disposition Clinical Impression: Pulmonary emboli, UTI (urinary tract infection) Disposition: ADMITTED IP TO THIS [facility] Condition: Fair Referrals: Smith Beasley DO [Primary Care Provider] - 1-2 days Decision Time: 00:01
[2024-01-07] MEDS: HEPARIN SOD,PORK IN 0.45% NACL 25,000 UNIT in 0.45% NACL 1 250ML.BAG IV SCH (23:25)
[2024-01-07 23:29] LABS: Basophils % (A) 0 %; Eosinophils # (A) 0.1 k/uL (0-0.7); Eosinophils % (A) 1 %; HCT 47.7 % (34.0-46.0); HGB 16.3 gm/dL (11.4-16.0); Lymphocytes # (A) 1.1 k/uL (1.0-4.8); Lymphocytes % (A) 13 %; MCH 31.4 pg (25.0-35.0); MCHC 34.2 g/dL (31.0-37.0); MCV 91.8 fL (80.0-100.0); Mean Platelet Volume 7.7; Monocytes # (A) 0.4 k/uL (0-1.0); Monocytes % (A) 5 %; Neutrophils % (A) 81 %; Platelet Count 173 k/uL (150-450); RDW 14.4 % (11.5-15.5); WBC 8.7 k/uL (3.8-10.6)
[2024-01-07] MEDS ORDERED: NALOXONE 0.4 MG/ML 1 ML VIAL IV PRN (23:57)
[2024-01-08 00:24] LABS: African American GFR (CKD) >90 (>60 ml/min/1.73 sqM); Anion Gap 10 mmol/L; Blood Urea Nitrogen 20 mg/dL (7-17); Carbon Dioxide 26 mmol/L (22-30); Chloride 99 mmol/L (98-107); Glucose 132 mg/dL (74-99); Non-African American GFR(CKD) >90 (>60 ml/min/1.73 sqM); Potassium 3.7 mmol/L (3.5-5.1); Sodium 135 mmol/L (137-145)
[2024-01-08] MEDS: SODIUM CHLORIDE 0.9% 1,000 ML IV SCH (00:30)
[2024-01-08] MEDS: HEPARIN SODIUM 1,000 UN/ML (10ML VL) IV ONE (02:06)
--- NOTE | 2024-01-08 05:45 | P.CNPUL ---
History of Present Illness Consult date: 01/08/24 Requesting physician: Taj Welch Reason for consult: pulmonary embolism Chief complaint: Altered mental status, medication noncompliance History of present illness: Patient is a 68-year-old white female reportedly with past medical history significant for atrial fibrillation. She was transferred from [facility] late last night for possible urinary tract infection and pulmonary embolism. Patient is currently lying in bed, not offering much information. She becomes tearful when asked any questions. She is alert and oriented x 3. She actually denies any complaints, and when pressed further she states that she is "lying". She will not elaborate on this. Questional background of mental illness. On review of outside facility documentation, patient reportedly had not been taking her medications as prescribed at home. She apparently had a visiting nurse come to her home, who noted her to be confused in bed and covered in urine and feces. On arrival to the outside facility she had a urinalysis concerning for UTI. She was given a dose of Rocephin. Urine toxicology screen was negative at outside facility. She was also noted to be hypoxic, placed on supplemental oxygen. Chest CTA identified a nonocclusive PE within the right main pulmonary artery, as well as, a small segmental and sub-segmental occlusive pulmonary embolism within the right lower lobe. No CT evidence of right-sided heart strain. There is also a small right-sided pleural effusion and likely asso ciated atelectasis. She denies any history of DVT/PE. Xarelto is listed as a home medication, likely for her chronic atrial fibrillation, however; as stated above, thought not to be taking her medications as ordered. On my evaluation, patient is still in the emergency department. Rhythm on bedside monitor appears to be atrial fibrillation with a rate of 106 bpm. Blood pressure is hypertensive. Currently on 2 L/min nasal cannula, SpO2 is 99%. She is currently on the high intensity heparin protocol. Currently, she denies any shortness of breath, coughing, chest pain, hemoptysis. Denies any heart palpitations, lightheadedness, or syncopal events. CBC: WBC count 8.7, hemoglobin 16.3, hem atocrit 47.7, platelets 173. Electrolytes are normal. BUN 20, creatinine 0.54. Troponin less than 0.012. EKG taken on arrival to our facility shows atrial fibrillation with controlled ventricular rate, no obvious acute ischemic changes. Afebrile. Vitals are stable. Review of Systems REVIEW OF SYSTEMS: CONSTITUTIONAL: Denies any recent significant weight loss or weight gain. EYES: Denies change in vision. EARS, NOSE, MOUTH, THROAT: Denies headaches, denies sore throat. CARDIOVASCULAR: Denies chest pain, palpitations or syncopal episodes. RESPIRATORY: Denies shortness of breath, cough, congestion or hemoptysis. GASTROINTESTINAL: Denies change in appetite, abdominal pain, nausea and vomiting, or diarrhea GENITOURINARY: Denies hematuria, denies infections. MUSKULOSKELETAL: Denies pain, denies swelling. INTEGUMENTARY: Denies rash, denies eczema. NEUROLOGICAL: Denies recent memory loss, no recent seizure activity. PSYCHIATRIC: Denies anxiety, denies depression. HEMATOLOGIC/LYMPHATIC: Denies anemia, denies enlarged lymph node Past Medical History Past Medical History: Atrial Fibrillation History of Any Multi-Drug Resistant Organisms: None Reported Additional Past Surgical History / Comment(s): "3 c-sections and a knee surgery" Past Psychological History: No Psychological Hx Reported Smoking Status: Never smoker Past Alcohol Use History: Occasional Past Drug Use History: None Reported Medications and Allergies Home Medications Medication Instructions Recorded Confirmed Type Rivaroxaban [Xarelto] 20 mg PO HS 01/11/23 01/08/24 History carvediloL [Coreg] 12.5 mg PO BID 01/11/23 01/08/24 History Potassium Chloride ER [K-Dur 10] 10 meq PO BID 01/08/24 01/08/24 History Venlafaxine HCl [Effexor XR] 75 mg PO DAILY 01/08/24 01/08/24 History Venlafaxine HCl [Effexor XR] 150 mg PO DAILY 01/08/24 01/08/24 History risperiDONE [risperiDONE ODT] 2 mg PO HS 01/08/24 01/08/24 History Allergies Allergy/AdvReac Type Severity Reaction Status Date / Time amoxicillin [From Augmentin] AdvReac Diarrhea Verified 01/08/24 09:52 clavulanic acid AdvReac Diarrhea Verified 01/08/24 09:52 [From Augmentin] doxycycline AdvReac Diarrhea Verified 01/08/24 09:52 Physical Exam Vitals: Vital Signs Temp Pulse Resp BP Pulse Ox 01/08/24 04:00 107 H 18 141/104 100 01/08/24 01:15 130 H 18 157/112 98 01/08/24 00:31 92 18 152/98 99 01/07/24 22:55 97.3 F L 82 18 156/102 100 Intake and Output 01/07/24 01/07/24 01/08/24 14:59 22:59 06:59 Other: Weight 72.575 kg GENERAL EXAM: Alert, 68-year-old white female, when asked questions during interview starts become tearful and crying. HEAD: Normocephalic and atraumatic EYES: Normal reaction of pupils, equal size. NOSE: Clear with pink turbinates. THROAT: No erythema or exudates. NECK: No masses, no JVD. CHEST: No chest wall deformity. LUNGS: Equal air entry with diminished right basilar lung sounds. No crackles, wheezes, or rhonchi. On 2 L/min nasal cannula. SpO2 99%.. No conversational dyspnea or accessory muscle use.. CVS: S1 and S2 normal with no audible murmur, irregular rhythm. No extra heart sounds ABDOMEN: No hepatosplenomegaly, active bowel sounds, no guarding or rigidity. SPINE: No scoliosis or deformity SKIN: Bilateral lower extremity with chronic venous stasis changes CENTRAL NERVOUS SYSTEM: No focal deficits, tone is normal in all 4 extremities. EXTREMITIES: There is no peripheral edema, clubbing, or cyanosis. Peripheral pulses are intact. Results - Laboratory Findings CBC and BMP: 01/07/24 23:15 01/07/24 23:15 Abnormal lab findings: Abnormal Labs 01/07/24 01/07/24 23:15 23:15 Hgb 16.3 H Hct 47.7 H Sodium 135 L BUN 20 H Glucose 132 H - Diagnostic Findings Chest x-ray: image reviewed CT scan - chest: image reviewed Assessment and Plan Assessment: Right sided nonocclusive pulmonary embolism within the distal right main pulmonary artery, as well as, segmental and subsegmental occlusive pulmonary emboli within the right lower lobe. No CT evidence of right-sided heart strain. Acute hypoxemic respiratory failure, currently on 2 L/min nasal cannula, secondary to above Small right-sided pleural effusion Possible urinary tract infection Possible acute metabolic encephalopathy, secondary to above Atrial fibrillation, currently with rapid ventricular response, Xarelto is listed as a home medication, however, reportedly noncompliant with medications at home Hypertension Reported medication noncompliance Plan: Patient's medications, labs, imaging reviewed Continue supplemental oxygen and wean FiO2 as tolerated Patient currently on the high intensity IV heparin protocol. Repeat APTT pending Follow-up echocardiogram ordered Will likely transition patient back to Xarelto Will resume beta-gomez Check Thyroid labs Urine culture to be collected Patient did receive a dose of Rocephin at the outside facility We will continue to follow I have personally seen and examined the patient, performed the documentation and the assessment and plan as written. Number of minutes spent on the visit:20 On 01/08/2024, the patient is being seen in joint evaluation along with the nurse practitioner. This evaluation was done and more than 30 minutes. In summary, the patient has been hospitalized for an acute nonocclusive pulmonary embolism involving the distal right main pulmonary artery as well as the segmental and subsegmental branches of the right lower lobe. No evidence of any RV strain based on CAT scan criteria. The patient's troponins are negative. Echocardiogram has been ordered. Clinically stable. Hemodynamically stable. The patient is currently on 1 L of oxygen by nasal cannula with a pulse ox of 99%. Rest of the labs were all reviewed and the findings are essentially within normal limits. The patient is known to have chronic A-fib and she was transferred to us from [facility] for a possible UTI and pulmonary embolism. She does have some background mental illness. She was diagnosed having UTI at an outside facility and the patient was started on IV Rocephin. CTA of the chest results were discussed above. On a separate note, the patient has been maintained on anticoagulation with Xarelto. Compliancy with medication intake is questionable. This has been listed in the medication list. The patient has been reportedly noncompliant to therapy. Will investigate this issue further. For now, the patient will be kept on IV heparin. Will continue monitoring. Echocardiogram has been ordered. Plan Doppler of the lower extremities. Will follow. Time with Patient: Greater than 30
[2024-01-08] MEDS: carvediloL 12.5 MG TAB PO SCH (07:45)
--- NOTE | 2024-01-08 07:57 | XR ---
EXAMINATION TYPE: XR chest 1V portable DATE OF EXAM: 01/08/2024 HISTORY: Shortness of breath. COMPARISON: 01/16/2023 TECHNIQUE: Single view of the chest is submitted. FINDINGS: Demonstrated are scattered senescent parenchymal change. There is no evidence for focal infiltrate. The heart is stable. Hilar and mediastinal structures are within normal limits. Degenerative changes are seen of the dorsal spine. IMPRESSION: 1. Chronic changes without evidence for acute pulmonary disease.
[2024-01-08] MEDS ORDERED: methIMAzole 5 MG TAB PO SCH (10:00)
[2024-01-08] MEDS: FAMOTIDINE 20 MG TAB PO SCH (10:38)
[2024-01-08] MEDS ORDERED: QUEtiapine 25 MG TAB PO PRN (14:06)
--- NOTE | 2024-01-08 15:40 | P.HPIM ---
History of Present Illness H&P Date: 01/08/24 Chief Complaint: Agitated This is a 68-year-old patient, follows with Dr. BURT.. History is obtained from the ex- with whom the patient lives. Because patient has very poor teeth patient for last few days is really not been eating. Also decided not to take a medication that included Xarelto. Patient was becoming agitated at home week. Was taken down to the [facility]. Found to be 88% on room air. Further patient is found of significant UTI positive for nitrate leukoesterase. Was found to have segmental and subsegmental PE. Started on IV heparin. Transferred down here. Patient is a non-smoker does not drink alcohol. Patient Also has bipolar. Patient had also initially been refusing her medications and testing in the ER. Had to be talked into everything. Per the nursing. Sometimes was not making sense as per the nursing staff and as per the in the last few days at home. Review of systems: GEN.: Tired EYES: None HEENT: None NECK: None RESPIRATORY: Some shortness of breath e CARDIOVASCULAR: None GASTROINTESTINAL: None GENITOURINARY: None MUSCULOSKELETAL: None LYMPHATICS: None HEMATOLOGICAL: None PSYCHIATRY: Anxious NEUROLOGICAL: None Social history: Lives with her ex-. No smoking no alcohol Physical examination: VITAL SIGNS: 97.7, 101, 18, 08/23/1982, 99% on 1 L GENERAL: BMI 28.3, reclining in bed 6. EYES: Pupils equal. Conjunctiva ericka l. HEENT: External appearance of nose and ears normal, oral cavity grossly normal. Poor dentition status NECK: JVD not raised; masses not palpable. HEART: First and second heart sounds are normal; no edema. LUNGS: Respiratory rate increased, decreased breath sounds. ABDOMEN: Soft, nontender, liver spleen not palpable, no masses palpable. PSYCH: Able to answer questions appropriately. Alert to place time year. l. MUSCULOSKELETAL:No Clubbing/cyanosis;muscles-grossly intact NEUROLOGICAL: Cranial nerves grossly intact; no facial asymmetry, power and sensation grossly intact. LYMPHATICS: No lymph nodes palpable in the axilla and neck INVESTIGATIONS, reviewed in the clinical context: January 07, 2024: White count 8.7 hemoglobin 16.3 platelets 173 sodium 135 potassium 3.7 BUN 20 creatinine 0.54 Troponin I less than 0.012 TSH 0.544 EKG tracing personally reviewed by me-atrial fibrillation nonspecific ST-T wave changes Chest x-ray film personally reviewed by me-probably rotated portable no obvious abnormality Investigations from [facility]: CT chest showing segmental and subsegmental PE. UA positive for nitrate leukoesterase Assessment plan: -Acute segmental subsegmental PE in a patient who has been on Xarelto for atrial fibrillation. But patient stopped taking medications for last 2 3 days at least as her teeth are bothering her and not able to eat. This likely precipitated the acute PE Patient started on IV heparin. Will switch to the loading dose of Xarelto. As this is not a failure of Xarelto -Acute hypoxic respiratory failure from PE patient was documented to have a pulse ox of 88% by the EMS on room air. Oxygen was supplemented -IV heparin monitoring Follow PTT -Acute UTI with cystitis Keflex 500 mg 4 times daily -Bipolar disorder, possibly uncontrolled from not taking medications Psychiatry consulted -Persistent atrial fibrillation, rate controlled Coreg 12.5 twice daily. IV heparin -Full code Care was discussed with the patient and the over the phone. Past Medical History Past Medical History: Atrial Fibrillation History of Any Multi-Drug Resistant Organisms: None Reported Additional Past Surgical History / Comment(s): "3 c-sections and a knee surgery" Past Psychological History: No Psychological Hx Reported Smoking Status: Never smoker Past Alcohol Use History: Occasional Past Drug Use History: None Reported Medications and Allergies Home Medications Medication Instructions Recorded Confirmed Type Rivaroxaban [Xarelto] 20 mg PO HS 01/11/23 01/08/24 History carvediloL [Coreg] 12.5 mg PO BID 01/11/23 01/08/24 History Potassium Chloride ER [K-Dur 10] 10 meq PO BID 01/08/24 01/08/24 History Venlafaxine HCl [Effexor XR] 75 mg PO DAILY 01/08/24 01/08/24 History Venlafaxine HCl [Effexor XR] 150 mg PO DAILY 01/08/24 01/08/24 History risperiDONE [risperiDONE ODT] 2 mg PO HS 01/08/24 01/08/24 History Allergies Allergy/AdvReac Type Severity Reaction Status Date / Time amoxicillin [From Augmentin] AdvReac Diarrhea Verified 01/08/24 09:52 clavulanic acid AdvReac Diarrhea Verified 01/08/24 09:52 [From Augmentin] doxycycline AdvReac Diarrhea Verified 01/08/24 09:52 Physical Exam Vitals: Vital Signs Temp Pulse Resp BP Pulse Ox 01/08/24 08:02 99 01/08/24 07:42 97.7 F 101 H 18 126/83 99 01/08/24 06:00 97 18 138/88 100 01/08/24 05:51 99.3 F 104 H 18 154/101 97 01/08/24 04:00 107 H 18 141/104 100 01/08/24 01:15 130 H 18 157/112 98 01/08/24 00:31 92 18 152/98 99 01/07/24 22:55 97.3 F L 82 18 156/102 100 Intake and Output 01/08/24 01/08/24 01/08/24 06:59 14:59 22:59 Intake Total 131.729 Balance 131.729 Intake: Intake, IV Titration 131.729 Amount Heparin Sod,Pork in 0.45% 131.729 NaCl 25,000 unit In 0.45 % NaCl 1 250ml.bag @ 18 UNITS/KG/HR 13.064 mls/hr IV .[id number] [facility] Rx#: [id number] Results CBC & Chem 7: 01/07/24 23:15 01/07/24 23:15 Labs: Abnormal Lab Results - Last 24 Hours (Table) 01/07/24 01/07/24 01/08/24 Range/Units 23:15 23:15 08:22 Hgb 16.3 H (11.4-16.0) gm/dL Hct 47.7 H (34.0-46.0) % APTT >200.0 H* (22.0-30.0) sec Sodium 135 L (137-145) mmol/L BUN 20 H (7-17) mg/dL Glucose 132 H (74-99) mg/dL
--- NOTE | 2024-01-08 16:13 | US ---
EXAMINATION TYPE: US venous doppler duplex LE BI DATE OF EXAM: 01/08/2024 3:55 PM COMPARISON: NONE CLINICAL INDICATION: Female, 68 years old with history of PE; On IV heparin. SIDE PERFORMED: Bilateral TECHNIQUE: The lower extremity deep venous system is examined utilizing real time linear array sonog aron with graded compression, doppler sonography and color-flow sonography. VESSELS IMAGED: Common Femoral Vein Deep Femoral Vein Greater Saphenous Vein * Femoral Vein Popliteal Vein Small Saphenous Vein * Proximal Calf Veins (* superficial vessels) Suboptimal due to smaller vein sizes Right Leg: Negative for DVT Left Leg: Negative for DVT Grayscale, color doppler, spectral doppler imaging performed of the deep veins of the bilateral lower extremities. There is normal flow, compressibility, vascular waveforms. IMPRESSION: Suboptimal study per technologist. No ultrasound evidence for acute DVT in either lower extremity.
[2024-01-08] MEDS: VENLAFAXINE HCL ER 75 MG CAP PO SCH (16:32)
[2024-01-08] MEDS: CEPHALEXIN 500 MG CAP PO SCH (16:33)
--- NOTE | 2024-01-08 19:19 | P.CN ---
Psychiatric Consult - . Consult date: 01/08/24 Consult:: 01/08/24 13:32 IDENTIFYING DATA: This patient is a 68-year-old female, currently lives with her ex- in a house she has 3 kids, collects Social Security REASON FOR REFERRAL: Psychiatry was consulted for "history of bipolar" HISTORY OF PRESENT ILLNESS: The patient presented to the hospital initially on 01/06 as a transfer from an outside hospital for a UTI delirium and a PE. Patient initially was a poor historian, was altered at home, she has a apparent history of bipolar disorder on Risperdal and Effexor. Patient was seen today at the bedside, was alert and oriented x 3, directable during conversation, states that she was at home and had a visiting nurse and states that "she called EMS and brought me to the hospital". She states that they found that she had a pulmonary embolism and a UTI. She states that her breathing is better now she is not she is denying any chest pain. Claims that her sleep has been on and off, appetite has been on and off, denies any fluctuations in her mood at this time. At this time patient denies any suicidal or homical ideations, intent or plan. Patient denies any auditory, visual hallucinations and denies any paranoia or delusions. Patients admits to using no recreational drugs, states that she quit smoking several years ago. PAST PSYCHIATRIC HISTORY: Patient has a a history of bipolar disorder. She is currently on Effexor and Risperdal. Patient denies any previous psychiatric hospitalizations. Claims that she currently follows up at [facility] with her psychiatrist in [facility]. Patient denies any history of suicide attempts in the past. PAST MEDICAL HISTORY: Past Medical History: Atrial Fibrillation History of Any Multi-Drug Resistant Organisms: None Reported Additional Past Surgical History / Comment(s): "3 c-sections and a knee surgery" Past Psychological History: No Psychological Hx Reported Smoking Status: Never smoker Past Alcohol Use History: Occasional Past Drug Use History: None Reported ALLERGIES: as per EMR. CHEMICAL DEPENDENCY HISTORY: as per HPI. FAMILY PSYCHIATRIC/SUBSTANCE USE HISTORY: Claims that her father committed suicide, states that she was adopted show so she does not know much about other family members. SOCIAL HISTORY: Patient was born and raised in [facility]. States that she was adopted at a young age. States that she did some college after high school. Denies any legal history. 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 Currently collect Social Security, she claims that she currently lives with her ex- in a house, she has 3 kids. MENTAL STATUS EXAM: General Appearance: Patient appears to be has disheveled hair, stated age is alert, pleasant, and cooperative. Patient appears to have fair hygiene and grooming wearing hospital gown with fair eye contact. Behavior: Patient is calmly lying in bed without any agitated behavior. Attempts to cooperate. Speech: Patient's speech is fluent and nonpressured. Mood/Affect: Patient reports their mood is "all right now", affect is congruent Suicidality/Homicidality: Patient denies having any suicidal or homicidal ideation intent or plan. Perceptions: Patient denies any visual hallucinations and denies any auditory hallucinations Though content/process: There is no evidence of any delusional thought content and thought process is linear and goal-directed. [place] Memory and concentration: AOX3, grossly intact for the purposes of this session. Can spell "WORLD" backwards Judgment and insight: Fair IMPRESSIONS: History of bipolar disorder delirium, unknown etiology, resolved PLAN: -At this time patient DOES NOT meet criteria for inpatient psychiatric admission. -Delirium precautions recommended with patient including - avoiding use of narcotics and [employer]ION[employer]VERTISING [employer]ISTANT sedatives, limit anticholinergic medications when possible, frequent re-orientation, minimize use of restraints, open window shades during the day and close them at night -Would recommend the following medication changes/additions: Patient is agreeable to continue on with Effexor as prescribed 225 mg daily for mood/anxiety, patient claims that she does not want to be on Risperdal any longer due to side effects and dizziness, was interested in trying Seroquel for tonight 25 mg nightly for mood stabilization/insomnia. Seroquel 25 mg twice daily as needed for insomnia/anxiety. -Patient will continue following up at [facility] with Dr. Pacheco -Communicated plan to patient's nurse -Psychiatry will sign off at this time -Please contact with any questions. 01/08/24 19:12
[2024-01-08] MEDS: RIVAROXABAN 15 MG TAB PO SCH (21:19)
[2024-01-08] MEDS: QUEtiapine 25 MG TAB PO SCH (22:52)
[2024-01-09 08:29] VITALS: RESP 16
[2024-01-09 14:19] VITALS: BMI 28.3
--- NOTE | 2024-01-09 16:11 | CA ---
Transthoracic Echo Report Name: Denise Vidal Age: 68 Gender: F : 1955 Exam Date: 01/09/2024 10:22 Exam Location: [place] [facility] Ht (in): 63 Wt (lb): 160 Ordering Physician: Smith Munoz Attending/Referring Phys: Coach Wirer Paulina Rothman RDCS Procedure CPT: Indications: Pulmonary Embolism Cardiac Hx: Technical Quality: Technically difficult study Contrast 1: Definity Total Dose (mL): 2 Contrast 2: Total Dose (mL): MEASUREMENTS (Male / Female) Normal Values 2D ECHO LV Diastolic Diameter PLAX 4.1 cm 4.2 - 5.9 / 3.9 - 5.3 cm LV Systolic Diameter PLAX 3.4 cm IVS Diastolic Thickness 0.9 cm 0.6 - 1.0 / 0.6 - 0.9 cm LVPW Diastolic Thickness 1.1 cm 0.6 - 1.0 / 0.6 - 0.9 cm LV Relative Wall Thickness 0.5 RV Internal Dim ED PLAX 4.0 cm LVOT Diameter 2.3 cm Aortic Root Diameter 1.3 cm LA Systolic Diameter LX 4.5 cm 3.0 - 4.0 / 2.7 - 3.8 cm M-MODE Aortic Root Diameter MM 3.0 cm DOPPLER AV Peak Velocity 130.7 cm/s AV Peak Gradient 6.8 mmHg AV Mean Gradient 3.6 mmHg AV Velocity Time Integral 25.4 cm AI Peak Velocity 351.4 cm/s AI Peak Gradient 49.4 mmHg AI Pressure Half Time 708.7 ms Mitral E Point Velocity 31.0 cm/s Mitral A Point Velocity 46.0 cm/s Mitral E to A Ratio 0.7 MV Deceleration Time 180.1 ms TR Peak Velocity 264.8 cm/s TR Peak Gradient 28.1 mmHg FINDINGS Left Ventricle Left ventricular ejection fraction is estimated at 50-55 %. Left ventricular cavity size normal. Mildly increased posterior wall thickness. No obvious regional wall motion abnormalities. Right Ventricle Severe right ventricular dilatation. Mild pulmonary hypertension. Right Atrium Right atrium not well visualized. Left Atrium Moderately increased left atrial diameter. Mildly increased left atrial area. Mitral Valve Mitral valve thickened. Mild mitral annular calcification. Trace to mild mitral regurgitation. Aortic Valve Aortic valve sclerosis. No aortic stenosis. Mild aortic regurgitation. Tricuspid Valve Structurally normal tricuspid valve. Mild tricuspid regurgitation. Pulmonic Valve Pulmonic valve not well visualized. Pericardium No pericardial or pleural effusion. Aorta Normal size aortic root and proximal ascending aorta. CONCLUSIONS Normal LV size and function Enlarged right ventricle Previewed by: Dr. Aren Akers MD (Electronically Signed) Final Date: 09 January 2024 16:10
--- NOTE | 2024-01-09 17:45 | P.PN ---
Progress Note - Text Progress Note Date: 01/09/24 Chief Complaint: Agitated This is a 68-year-old patient, follows with Dr. BURT.. History is obtained from the ex- with whom the patient lives. Because patient has very poor teeth patient for last few days is really not been eating. Also decided not to take a medication that included Xarelto. Patient was becoming agitated at home week. Was taken down to the [facility]. Found to be 88% on room air. Further patient is found of significant UTI positive for nitrate leukoesterase. Was found to have segmental and subsegmental PE. Started on IV heparin. Transferred down here. Patient is a non-smoker does not drink alcohol. Patient Also has bipolar. Patient had also initially been refusing her medications and testing in the ER. Had to be talked into everything. Per the nursing. Sometimes was not making sense as per the nursing staff and as per the in the last few days at home. January 08: Patient refused her Seroquel last night. Spoke to the nurse to talk to psychiatry about any further change in medications. Had all of breakfast today. Took all her medications today. Patient on Xarelto. But pulse ox Active Medications Carvedilol (Carvedilol 12.5 Mg Tab) 12.5 mg PO BID-W/MEALS [facility] Last Admin: 01/09/24 17:18 Dose: 12.5 mg Cephalexin (Cephalexin 500 Mg Cap) 500 mg PO QID [facility]; Protocol Last Admin: 01/09/24 17:18 Dose: 500 mg Famotidine (Famotidine 20 Mg Tab) 20 mg PO BID [facility] Last Admin: 01/09/24 09:09 Dose: 20 mg Heparin Sodium (Porcine) (Heparin Sodium 1,000 Un/Ml (10ml Vl)) 0 unit IV PER PROTOCOL PRN; Protocol PRN Reason: Low PTT Sodium Chloride (Saline 0.9%) 1,000 mls @ 20 mls/hr IV .Q24H [facility] Last Admin: 01/09/24 05:45 Dose: 20 mls/hr Naloxone HCl (Naloxone 0.4 Mg/Ml 1 Ml Vial) 0.2 mg IV Q2M PRN PRN Reason: Opioid Reversal Quetiapine Fumarate (Quetiapine 25 Mg Tab) 25 mg PO BID PRN PRN Reason: anxiety/insomnia Quetiapine Fumarate (Quetiapine 25 Mg Tab) 25 mg PO HS [facility] Last Admin: 01/08/24 22:52 Dose: Not Given Rivaroxaban (Rivaroxaban 15 Mg Tab) 15 mg PO BID [facility]; Taper Stop: 02/07/24 20:59 Last Admin: 01/09/24 09:09 Dose: 15 mg Venlafaxine HCl (Venlafaxine Hcl Er 75 Mg Cap) 225 mg PO HS [facility] Social history: Lives with her ex-. No smoking no alcohol Physical examination: VITAL SIGNS: 98, 84, 16, 98 x 66, 99% room air GENERAL: Reclining in bed, comfortable EYES: Pupils equal. Conjunctiva ericka l. HEENT: External appearance of nose and ears normal, oral cavity grossly normal. Poor dentition status NECK: JVD not raised; masses not palpable. HEART: First and second heart sounds are normal; no edema. LUNGS: Respiratory rate increased, decreased breath sounds. ABDOMEN: Soft, nontender, liver spleen not palpable, no masses palpable. PSYCH: Able to answer questions appropriately. Alert to place time year. l. MUSCULOSKELETAL:No Clubbing/cyanosis;muscles-grossly intact INVESTIGATIONS, reviewed in the clinical context: January 07, 2024: White count 8.7 hemoglobin 16.3 platelets 173 sodium 135 potassium 3.7 BUN 20 creatinine 0.54 Troponin I less than 0.012 TSH 0.544 EKG tracing personally reviewed by me-atrial fibrillation nonspecific ST-T wave changes Chest x-ray film personally reviewed by me-probably rotated portable no obvious abnormality Investigations from [facility]: CT chest showing segmental and subsegmental PE. UA positive for nitrate leukoesterase Assessment plan: -Acute segmental subsegmental PE in a patient who has been on Xarelto for atrial fibrillation. But patient stopped taking medications for last 2 3 days at least as her teeth are bothering her and not able to eat. This likely precipitated the acute PE . As this is not a failure of Xarelto Initially given IV heparin. Switched over to loading dose of Xarelto -Acute hypoxic respiratory failure from PE patient was documented to have a pulse ox of 88% by the EMS on room air. Oxygen was supplemented: Resolved -IV heparin monitoring-discontinued Follow PTT -Acute UTI with cystitis Keflex 500 mg 4 times daily -Bipolar disorder, possibly uncontrolled from not taking medications Seen by Dr. Man: Continue Effexor to 25 mg. Seroquel 25 mg twice daily Follow-up with [facility] in [place] -Persistent atrial fibrillation, rate controlled Coreg 12.5 twice daily. Xarelto -Full code Nurse will speak to psychiatrist to make sure current medications are to be continued. Plan for discharge tomorrow. Past Medical History Past Medical History: Atrial Fibrillation History of Any Multi-Drug Resistant Organisms: None Reported Additional Past Surgical History / Comment(s): "3 c-sections and a knee surgery" Past Psychological History: No Psychological Hx Reported Smoking Status: Never smoker Past Alcohol Use History: Occasional Past Drug Use History: None Reported
[2024-01-09] MEDS: VENLAFAXINE HCL ER 75 MG CAP PO SCH (20:20)
--- NOTE | 2024-01-09 23:00 | P.PN ---
Subjective Progress Note Date: 01/09/24 On 01/09/2024, the patient is being seen for a follow-up. Patient is calm and comfortable. No specific complaints. Hemodynamically stable and the patient is currently on room air oxygen with a pulse ox of 99%. The patient was placed back on Xarelto 15 mg p.o. twice a day. The patient is also on normal saline at rate of 20 cc an hour. IV heparin has been discontinued. No other labs from today. The patient has developed segmental/subsegmental pulmonary embolism and she has been compliant to her outpatient Xarelto treatment. This obviously precipitated an acute pulmonary embolism. She is also suspected to have a component of urinary tract infection/cystitis and the patient is currently on Ke flex 5 mg p.o. 4 times daily. No other significant events overnight. Dopplers of the lower extremities were essentially negative for an acute DVT in the legs. The patient also had a psychiatric evaluation diagnosed having bipolar disorder and a component of delirium and the recommendations was to continue Effexor, Seroquel 25 mg twice a day as needed and Risperdal has been discontinued. Objective - Vital Signs Vital signs: Vital Signs Temp 98.0 F 01/09/24 15:40 Pulse 84 01/09/24 15:40 Resp 16 01/09/24 15:40 BP 98/66 01/09/24 15:40 Pulse Ox 99 01/09/24 15:40 FiO2 Intake & Output 01/09/24 01/09/24 01/10/24 06:59 18:59 06:59 Intake Total 0 830 Output Total 50 600 400 Balance -50 230 -400 Weight 72.575 kg 72.575 kg Intake: Oral 0 830 Output: Urine 50 600 400 Other: Voiding Method External Catheter Diaper External Catheter # Voids 2 # Bowel Movements 0 - Exam GENERAL EXAM: Alert, 68-year-old white female, when asked questions during interview starts become tearful and crying. HEAD: Normocephalic and atraumatic EYES: Normal reaction of pupils, equal size. NOSE: Clear with pink turbinates. THROAT: No erythema or exudates. NECK: No masses, no JVD. CHEST: No chest wall deformity. LUNGS: Equal air entry with diminished right basilar lung sounds. No crackles, wheezes, or rhonchi. On 2 L/min nasal cannula. SpO2 99%.. No conversational dyspnea or accessory muscle use.. CVS: S1 and S2 normal with no audible murmur, irregular rhythm. No extra heart sounds ABDOMEN: No hepatosplenomegaly, active bowel sounds, no guarding or rigidity. SPINE: No scoliosis or deformity SKIN: Bilateral lower extremity with chronic venous stasis changes CENTRAL NERVOUS SYSTEM: No focal deficits, tone is normal in all 4 extremities. EXTREMITIES: There is no peripheral edema, clubbing, or cyanosis. Peripheral pulses are intact. - Labs CBC & Chem 7: 01/07/24 23:15 01/07/24 23:15 Assessment and Plan Assessment: Right sided nonocclusive pulmonary embolism within the distal right main pulmonary artery, as well as, segmental and subsegmental occlusive pulmonary emboli within the right lower lobe. No CT evidence of right-sided heart strain. This was essentially due to noncompliance to anticoagulation as the patient was supposed to be maintained on Xarelto on outpatient basis. Xarelto was restarted at a dose of 50 mg p.o. twice a day and IV heparin has been discontinued. Acute hypoxemic respiratory failure, currently on room air oxygen e Small right-sided pleural effusion Possible urinary tract infection, currently on Keflex Possible acute metabolic encephalopathy, secondary to above/delirium and the p atient was evaluated by psychiatry Atrial fibrillation, currently with rapid ventricular response, Xarelto is listed as a home medication, however, reportedly noncompliant with medications at home Hypertension Reported medication noncompliance Plan: Currently on room air oxygen Off IV heparin Anticoagulation with Xarelto has been started at 50 mg p.o. twice a day P.o. Keflex for suspected urinary tract infection Input by psychiatry has been appreciated and the patient will be maintained on Effexor and Seroquel Will continue to follow
[2024-01-10 04:19] VITALS: BP 104/66; PULSE 79; TEMP 97.4
--- NOTE | 2024-01-10 16:05 | P.DS ---
Providers Date of admission: 01/07/24 23:57 Expected date of discharge: 01/10/24 Attending physician: Abhijit Lewis Consults: 01/07/24 23:05 Consult Physician Routine Consulting Provider: Macy Hodges Consult Reason/Comments: PE Do you want consulting provider notified?: Yes 01/07/24 23:06 Consult Physician Routine Consulting Provider: Smith Man Consult Reason/Comments: history of bipolar Do you want consulting provider notified?: Yes Primary care physician: Smith [facility] Course: Chief Complaint: Agitated This is a 68-year-old patient, follows with Dr. BURT.. History is obtained from the ex- with whom the patient lives. Because patient has very poor teeth patient for last few days is really not been eating. Also decided not to take a medication that included Xarelto. Patient was becoming agitated at home week. Was taken down to the [facility]. Found to be 88% on room air. Further patient is found of significant UTI positive for nitrate leukoesterase. Was found to have segmental and subsegmental PE. Started on IV heparin. Transferred down here. Patient is a non-smoker does not drink alcohol. Patient Also has bipolar. Patient had also initially been refusing her medications and testing in the ER. Had to be talked into everything. Per the nursing. Sometimes was not making sense as per the nursing staff and as per the in the last few days at home. January 08: Patient refused her Seroquel last night. Spoke to the nurse to talk to psychiatry about any further change in medications. Had all of breakfast today. Took all her medications today. Patient on Xarelto. Good pulse ox January 09: Spoke to the nurse to get a okay from psychiatry for discharge. Otherwise patient doing well. Will be discharged on Xarelto starter pack. Other medications per psychiatry. Patient lives with her ex-. Social history: Lives with her ex-. No smoking no alcohol Physical examination: VITAL SIGNS: 97.4, 79, 16, 104 x 66, 98% room air GENERAL: Reclining in bed, comfortable EYES: Pupils equal. Conjunctiva ericka l. HEENT: External appearance of nose and ears normal, oral cavity grossly normal. Poor dentition status NECK: JVD not raised; masses not palpable. HEART: First and second heart sounds are normal; no edema. LUNGS: Respiratory rate increased, decreased breath sounds. ABDOMEN: Soft, nontender, liver spleen not palpable, no masses palpable. PSYCH: Answering questions appropriately MUSCULOSKELETAL:No Clubbing/cyanosis;muscles-grossly intact INVESTIGATIONS, reviewed in the clinical context: January 07, 2024: White count 8.7 hemoglobin 16.3 platelets 173 sodium 135 potassium 3.7 BUN 20 creatinine 0.54 Troponin I less than 0.012 TSH 0.544 EKG tracing personally reviewed by me-atrial fibrillation nonspecific ST-T wave changes Chest x-ray film personally reviewed by me-probably rotated portable no obvious abnormality Investigations from [facility]: CT chest showing segmental and subsegmental PE. UA positive for nitrate leukoesterase Assessment plan: -Acute segmental subsegmental PE in a patient who has been on Xarelto for atrial fibrillation. But patient stopped taking medications for last 2 3 days at least as her teeth are bothering her and not able to eat. This likely precipitated the acute PE . As this is not a failure of Xarelto Initially given IV heparin. Switched over to loading dose of Xarelto. Continue Xarelto -Acute hypoxic respiratory failure from PE patient was documented to have a pulse ox of 88% by the EMS on room air. Oxygen was supplemented: Resolved -IV heparin monitoring-discontinued Follow PTT -Acute UTI with cystitis Keflex 500 mg 4 times daily. Complete 4 more days of Keflex -Bipolar disorder, possibly uncontrolled from not taking medications Seen by Dr. Man: Continue Effexor 225 mg. Seroquel 25 mg nightly Follow-up with [facility] in [place] -Persistent atrial fibrillation, rate controlled Coreg 12.5 twice daily. Xarelto -Full code Disposition: Home with ex- Past Medical History Past Medical History: Atrial Fibrillation History of Any Multi-Drug Resistant Organisms: None Reported Additional Past Surgical History / Comment(s): "3 c-sections and a knee surgery" Past Psychological History: No Psychological Hx Reported Smoking Status: Never smoker Past Alcohol Use History: Occasional Past Drug Use History: None Reported Plan - Discharge Summary New Discharge Prescriptions: New QUEtiapine [SEROquel] 25 mg PO HS #30 tab Cephalexin [Keflex] 500 mg PO QID #16 cap Rivaroxaban InitiationDose-VTE [Xarelto Initiation Dosing for VTE Treatment] 15 mg PO DIRECTED #30 tab Continue carvediloL [Coreg] 12.5 mg PO BID Venlafaxine HCl [Effexor XR] 75 mg PO DAILY #30 cap Potassium Chloride ER [K-Dur 10] 10 meq PO BID Venlafaxine HCl [Effexor XR] 150 mg PO DAILY #30 cap Discontinued Rivaroxaban [Xarelto] 20 mg PO HS risperiDONE [risperiDONE ODT] 2 mg PO HS Discharge Medication List carvediloL [Coreg] 12.5 mg PO BID 01/11/23 [History] Potassium Chloride ER [K-Dur 10] 10 meq PO BID 01/08/24 [History] Cephalexin [Keflex] 500 mg PO QID #16 cap 01/10/24 [Rx] QUEtiapine [SEROquel] 25 mg PO HS #30 tab 01/10/24 [Rx] Rivaroxaban InitiationDose-VTE [Xarelto Initiation Dosing for VTE Treatment] 15 mg PO DIRECTED #30 tab 01/10/24 [Rx] Venlafaxine HCl [Effexor XR] 75 mg PO DAILY #30 cap 01/10/24 [Rx] Venlafaxine HCl [Effexor XR] 150 mg PO DAILY #30 cap 01/10/24 [Rx] Follow up Appointment(s)/Referral(s): dr ANJANA [Other] - 1 Week Smith Burt DO [Primary Care Provider] - 1-2 days Patient Instructions/Handouts: Pulmonary Embolism (DC), Urinary Tract Infection in Women (DC) Activity/Diet/Wound Care/Special Instructions: [address] [place] [address] Home Health Care f/u with her [facility] doctor Discharge Disposition: HOME SELF-CARE
--- NOTE | 2024-01-10 16:25 | P.PN ---
Subjective Progress Note Date: 01/10/24 On 01/09/2024, the patient is being seen for a follow-up. Patient is calm and comfortable. No specific complaints. Hemodynamically stable and the patient is currently on room air oxygen with a pulse ox of 99%. The patient was placed back on Xarelto 15 mg p.o. twice a day. The patient is also on normal saline at rate of 20 cc an hour. IV heparin has been discontinued. No other labs from today. The patient has developed segmental/subsegmental pulmonary embolism and she has been compliant to her outpatient Xarelto treatment. This obviously precipitated an acute pulmonary embolism. She is also suspected to have a component of urinary tract infection/cystitis and the patient is currently on Ke flex 5 mg p.o. 4 times daily. No other significant events overnight. Dopplers of the lower extremities were essentially negative for an acute DVT in the legs. The patient also had a psychiatric evaluation diagnosed having bipolar disorder and a component of delirium and the recommendations was to continue Effexor, Seroquel 25 mg twice a day as needed and Risperdal has been discontinued. On 01/10/2024, I am seeing the patient for a follow-up. The patient is doing well with no specific complaints. The patient has a pulm embolism and the patient was started on anticoagulation with Eliquis. She is also being treated for an underlying urine tract infection. She continues to be confused and delirious. She is on room air oxygen with a pulse ox of 98%. Hemodynamically stable. No new labs are available from today. She denies having any respiratory difficulties. No other significant events overnight. Objective - Vital Signs Vital signs: Vital Signs Temp 97.4 F L 01/10/24 04:00 Pulse 79 01/10/24 07:49 Resp 16 01/10/24 04:00 BP 104/66 01/10/24 04:00 Pulse Ox 98 01/10/24 04:00 FiO2 Intake & Output 01/09/24 01/10/24 01/10/24 18:59 06:59 18:59 Intake Total 830 10 Output Total 600 400 Balance 230 -390 Weight 72.575 kg Intake: IV 10 Invasive Line 1 10 Oral 830 Output: Urine 600 400 Other: Voiding Method Diaper Diaper External Catheter External Catheter # Voids 2 1 - Exam GENERAL EXAM: Alert, 68-year-old white female, when asked questions during interview starts become tearful and crying. HEAD: Normocephalic and atraumatic EYES: Normal reaction of pupils, equal size. NOSE: Clear with pink turbinates. THROAT: No erythema or exudates. NECK: No masses, no JVD. CHEST: No chest wall deformity. LUNGS: Equal air entry with diminished right basilar lung sounds. No crackles, wheezes, or rhonchi. Room air oxygen. SpO2 99%.. No conversational dyspnea or accessory muscle use.. CVS: S1 and S2 normal with no audible murmur, irregular rhythm. No extra heart sounds ABDOMEN: No hepatosplenomegaly, active bowel sounds, no guarding or rigidity. SPINE: No scoliosis or deformity SKIN: Bilateral lower extremity with chronic venous stasis changes CENTRAL NERVOUS SYSTEM: No focal deficits, tone is normal in all 4 extremities. EXTREMITIES: There is no peripheral edema, clubbing, or cyanosis. Peripheral pulses are intact. - Labs CBC & Chem 7: 01/07/24 23:15 01/07/24 23:15 Assessment and Plan Assessment: Right sided nonocclusive pulmonary embolism within the distal right main pulmonary artery, as well as, segmental and subsegmental occlusive pulmonary emboli within the right lower lobe. No CT evidence of right-sided heart strain. This was essentially due to noncompliance to anticoagulation as the patient was supposed to be maintained on Xarelto on outpatient basis. Xarelto was restarted at a dose of 50 mg p.o. twice a day and IV heparin has been discontinued. Clinically stable and the patient is currently on room air oxygen Acute hypoxemic respiratory failure, currently on room air oxygen Small right-sided pleural effusion Possible urinary tract infection, currently on Keflex Possible acute metabolic encephalopathy, secondary to above/delirium and the patient was evaluated by psychiatry Atrial fibrillation, currently with rapid ventricular response, Xarelto is lis walter as a home medication, however, reportedly noncompliant with medications at home Hypertension Reported medication noncompliance Plan: Currently on room air oxygen Off IV heparin Anticoagulation with Xarelto has been started at 50 mg p.o. twice a day P.o. Keflex for suspected urinary tract infection Input by psychiatry has been appreciated and the patient will be maintained on Effexor and Seroquel Will continue to follow . For discharge from pulmonary standpoint
== END 2024-01-10 16:00 | disposition home or self-care (01) | DRG 175 ==
LOC: EC 22:45 → 3SCARD 23:57
PROVIDERS: ADMIT Hospitalist; ATTEND Hospitalist
DX: I26.93 Single subsegmental thrombotic pulmonary embolism without acute cor pulmonale (principal); G93.41 Metabolic encephalopathy; J96.01 Acute respiratory failure with hypoxia; I48.19 Other persistent atrial fibrillation; F05 Delirium due to known physiological condition; J90 Pleural effusion, not elsewhere classified; J98.11 Atelectasis; F31.9 Bipolar disorder, unspecified; N30.90 Cystitis, unspecified without hematuria; I10 Essential (primary) hypertension; K08.89 Other specified disorders of teeth and supporting structures; T47.0X6A Underdosing of histamine H2-receptor blockers, initial encounter; T50.1X6A Underdosing of loop [high-ceiling] diuretics, initial encounter; T36.8X6A Underdosing of other systemic antibiotics, initial encounter; T45.516A Underdosing of anticoagulants, initial encounter; T44.7X6A Underdosing of beta-adrenoreceptor antagonists, initial encounter; T43.596A Underdosing of other antipsychotics and neuroleptics, initial encounter; T50.3X6A Underdosing of electrolytic, caloric and water-balance agents, initial encounter; T38.2X6A Underdosing of antithyroid drugs, initial encounter; Z79.01 Long term (current) use of anticoagulants; Z91.148 Patient's other noncompliance with medication regimen for other reason; Z87.891 Personal history of nicotine dependence; Z81.8 Family history of other mental and behavioral disorders; Z79.899 Other long term (current) drug therapy; Z88.0 Allergy status to penicillin; Z88.1 Allergy status to other antibiotic agents; G47.00 Insomnia, unspecified
CPT/HCPCS: 36415; 51798; 71045; 80048; 84443; 84484; 85025; 85730; 93005; 93306; 93970; 94760; 96365; 96366; 99285

== ENCOUNTER 2024-01-11 16:16 | Inpatient (IN) | payer MEDICARE, OTHER ==
--- NOTE | 2024-01-11 17:10 | ED ---
General Adult HPI - General Chief complaint: Weakness Stated complaint: Weakness Time Seen by Provider: 01/11/24 16:37 Source: patient, EMS, RN notes reviewed Mode of arrival: EMS Limitations: no limitations - History of Present Illness Initial comments: 68-year-old female presents to the emergency department seeking long-term care placement. She also reports that she was discharged from the hospital on antibiotics for a UTI. She states she is not taking her medications. When asked why she is not taking her medication she states that she does not want to. When her ex- arrived in the room, discussed this with him and he states that he is ensuring that she gets her medications daily including her blood thinner. He reports that she continues to be confused. He also reports that she is having difficulty getting around because she is very weak in the legs. She is requesting placement to a senior care or rehab facility. She denies chest pain, shortness of breath. Denies fever, chills. - Related Data Home Medications Medication Instructions Recorded Confirmed carvediloL [Coreg] 12.5 mg PO BID 01/11/23 01/08/24 Potassium Chloride ER [K-Dur 10] 10 meq PO BID 01/08/24 01/08/24 Previous Rx's Medication Instructions Recorded Cephalexin [Keflex] 500 mg PO QID #16 cap 01/10/24 QUEtiapine [SEROquel] 25 mg PO HS #30 tab 01/10/24 Rivaroxaban InitiationDose-VTE 15 mg PO DIRECTED #30 tab 01/10/24 [Xarelto Initiation Dosing for VTE Treatment] Venlafaxine HCl [Effexor XR] 75 mg PO DAILY #30 cap 01/10/24 Venlafaxine HCl [Effexor XR] 150 mg PO DAILY #30 cap 01/10/24 Allergies Allergy/AdvReac Type Severity Reaction Status Date / Time amoxicillin [From Augmentin] AdvReac Diarrhea Verified 01/11/24 16:32 clavulanic acid AdvReac Diarrhea Verified 01/11/24 16:32 [From Augmentin] doxycycline AdvReac Diarrhea Verified 01/11/24 16:32 Review of Systems ROS Statement: Those systems with pertinent positive or pertinent negative responses have been documented in the HPI. ROS Other: All systems not noted in ROS Statement are negative. Past Medical History Past Medical History: Atrial Fibrillation Additional Past Medical History / Comment(s): Patient thinks she has a history of CHF, PAD and DVT but is a poor historian and is unsure. History of Any Multi-Drug Resistant Organisms: None Reported Additional Past Surgical History / Comment(s): "3 c-sections and a knee surgery" Past Psychological History: Bipolar Smoking Status: Never smoker Past Alcohol Use History: Occasional Past Drug Use History: None Reported - Past Family History Sister(s) Family Medical History: Coronary Artery Disease (CAD), Myocardial Infarction (CA) General Exam Limitations: no limitations General appearance: alert, in no apparent distress Head exam: Present: atraumatic, normocephalic, normal inspection Eye exam: Present: normal appearance, PERRL, EOMI. Absent: scleral icterus, conjunctival injection, periorbital swelling Neck exam: Present: normal inspection. Absent: tenderness, meningismus, lymphadenopathy Respiratory exam: Present: normal lung sounds bilaterally. Absent: respiratory distress, wheezes, rales, rhonchi, stridor Extremities exam: Present: normal inspection, full ROM, normal capillary refill. Absent: tenderness, pedal edema, joint swelling, calf tenderness Back exam: Present: normal inspection Neurological exam: Present: alert Psychiatric exam: Present: normal affect, normal mood Skin exam: Present: warm, dry, intact, normal color. Absent: rash Course Vital Signs 01/11/24 01/11/24 01/12/24 16:27 20:05 00:41 Temperature 97.5 F L Pulse Rate 69 76 78 Respiratory 20 18 18 Rate Blood Pressure 127/85 130/87 141/88 O2 Sat by Pulse 99 96 99 Oximetry 01/12/24 01/12/24 01/12/24 01:00 02:00 04:00 Temperature Pulse Rate 74 76 76 Respiratory 18 18 18 Rate Blood Pressure 134/87 134/87 140/85 O2 Sat by Pulse 99 99 100 Oximetry Medical Decision Making - Medical Decision Making Was pt. sent in by a medical professional or institution (, PA, [employer]BER [employer]TER, urgent care, hospital, or senior care...) When possible be specific @ -No Did you speak to anyone other than the patient for history (EMS, parent, family, police, friend...)? What history was obtained from this source @ -Patient's ex- provided a majority of the history for this patient Did you review nursing and triage notes (agree or disagree)? Why? @ -I reviewed and agree with nursing and triage notes Were old charts reviewed (outside hosp., previous admission, EMS record, old EKG, old radiological studies, urgent care reports/EKG's, senior care records)? Report findings @ -No old charts were reviewed Differential Diagnosis (chest pain, altered mental status, abdominal pain women, abdominal pain men, vaginal bleeding, weakness, fever, dyspnea, syncope, headache, dizziness, GI bleed, back pain, seizure, CVA, palpatations, mental hea lth, musculoskeletal)? @ -Differential Weakness: Hypoglycemia, shock, sepsis, hyponatremia, anemia, infection, CA, ETOH, adverse medicine reaction, overdose, stroke, this is not meant to be an all-inclusive list. EKG interpreted by me (3pts min.). @ -None X-rays interpreted by me (1pt min.). @ -None done CT interpreted by me (1pt min.). @ -None done U/S interpreted by me (1pt. min.). @ -None done What testing was considered but not performed or refused? (CT, X-rays, U/S, labs)? Why? @ -None What meds were considered but not given or refused? Why? @ -None Did you discuss the management of the patient with other professionals (professionals i.e. , PA, [employer]TER, lab, RT, psych nurse, social staff worker, extract operator, teacher, community relations officer, keycase assembler)? Give summary @ -Case discussed with Dr. Charlton with [facility] who was accepting of the admission Was smoking cessation discussed for >3mins.? @ -No Was critical care preformed (if so, how long)? @ -No Were there social determinants of health that impacted care today? How? (Homelessness, low income, unemployed, alcoholism, drug addiction, trans portation, low edu. Level, literacy, decrease access to med. care, senior living, rehab)? @ -No Was there de-escalation of care discussed even if they declined (Discuss DNR or withdrawal of care, Hospice)? DNR status @ -No What co-morbidities impacted this encounter? (DM, HTN, Smoking, COPD, CAD, Cancer, CVA, ARF, Chemo, Hep., AIDS, mental health diagnosis, sleep apnea, morbid obesity)? @ -None Was patient admitted / discharged? Hospital course, mention meds given and route, prescriptions, significant lab abnormalities, going to OR and other pertinent info. @ -Admitted. Patient presented to the emergency department for evaluation of generalized weakness and possible placement to rehab facility. Patient underwent laboratory studies CBC, CMP unremarkable. UA shows significant WBCs and leukocyte esterase in the urine. Patient will be treated for urinary tract infection. Patient will be admitted to observation for rehab placement. Patient and family understanding and agreeable with plan. Patient stable at time of admission. Case discussed with Dr. Barone. Undiagnosed new problem with uncertain prognosis? @ -No Drug Therapy requiring intensive monitoring for toxicity (Heparin, Nitro, Insulin, Cardizem)? @ -No Were any procedures done? @ -No Diagnosis/symptom? @ -Generalized weakness Acute, or Chronic, or Acute on Chronic? @ -acute Uncomplicated (without systemic symptoms) or Complicated (systemic symptoms)? @ -uncomplicated Side effects of treatment? @ -No Exacerbation, Progression, or Severe Exacerbation? @ -No Poses a threat to life or bodily function? How? (Chest pain, USA, CA, pneumonia, PE, COPD, DKA, ARF, appy, cholecystitis, CVA, Diverticulitis, Homicidal, Luther icidal, threat to staff... and all critical care pts) @ -No - Lab Data Result diagrams: 01/11/24 17:33 01/11/24 17:33 Lab Results 01/11/24 01/11/24 01/11/24 Range/Units 17:33 17:33 17:33 WBC 6.1 (3.8-10.6) k/uL RBC 4.90 (3.80-5.40) m/uL Hgb 15.6 (11.4-16.0) gm/dL Hct 46.0 (34.0-46.0) % MCV 93.9 (80.0-100.0) fL MCH 31.8 (25.0-35.0) pg MCHC 33.9 (31.0-37.0) g/dL RDW 14.5 (11.5-15.5) % Plt Count 176 (150-450) k/uL MPV 7.8 Neutrophils % 75 % Lymphocytes % 16 % Monocytes % 7 % Eosinophils % 1 % Basophils % 0 % Neutrophils # 4.5 (1.3-7.7) k/uL Lymphocytes # 1.0 (1.0-4.8) k/uL Monocytes # 0.4 (0-1.0) k/uL Eosinophils # 0.0 (0-0.7) k/uL Basophils # 0.0 (0-0.2) k/uL PT 14.3 H (10.0-12.5) sec INR 1.4 H (<1.2) APTT 30.7 H (22.0-30.0) sec Sodium 136 L (137-145) mmol/L Potassium 4.1 (3.5-5.1) mmol/L Chloride 108 H (98-107) mmol/L Carbon Dioxide 20 L (22-30) mmol/L Anion Gap 8 mmol/L BUN 20 H (7-17) mg/dL Creatinine 0.47 L (0.52-1.04) mg/dL Est GFR (CKD-EPI)AfAm >90 (>60 ml/min/1.73 sqM) Est GFR (CKD-EPI)NonAf >90 (>60 ml/min/1.73 sqM) Glucose 105 H (74-99) mg/dL Calcium 9.1 (8.4-10.2) mg/dL Magnesium 1.9 (1.6-2.3) mg/dL Total Bilirubin 1.0 (0.2-1.3) mg/dL AST 34 (14-36) U/L ALT 18 (4-34) U/L Alkaline Phosphatase 90 (38-126) U/L Total Protein 7.2 (6.3-8.2) g/dL Albumin 4.0 (3.5-5.0) g/dL Urine Color Urine Appearance (Clear) Urine pH (5.0-8.0) Ur Specific [place] (1.001-1.035) Urine Protein (Negative) Urine Glucose (UA) (Negative) Urine Ketones (Negative) Urine Blood (Negative) Urine Nitrite (Negative) Urine Bilirubin (Negative) Urine Urobilinogen (<2.0) mg/dL Ur Leukocyte Esterase (Negative) Urine RBC (0-5) /hpf Urine WBC (0-5) /hpf Ur Squamous Epith Cells (0-4) /hpf Amorphous Sediment (None) /hpf Urine Bacteria (None) /hpf Urine Mucus (None) /hpf Urine Opiates Screen (NotDetected) Ur Oxycodone Screen (NotDetected) Urine Methadone Screen (NotDetected) Ur Barbiturates Screen (NotDetected) U Tricyclic Antidepress (NotDetected) Ur Phencyclidine Scrn (NotDetected) Ur Amphetamines Screen (NotDetected) U Methamphetamines Scrn (NotDetected) U Benzodiazepines Scrn (NotDetected) Urine Cocaine Screen (NotDetected) U Marijuana (THC) Screen (NotDetected) 01/11/24 01/11/24 Range/Units 20:53 20:53 WBC (3.8-10.6) k/uL RBC (3.80-5.40) m/uL Hgb (11.4-16.0) gm/dL Hct (34.0-46.0) % MCV (80.0-100.0) fL MCH (25.0-35.0) pg MCHC (31.0-37.0) g/dL RDW (11.5-15.5) % Plt Count (150-450) k/uL MPV Neutrophils % % Lymphocytes % % Monocytes % % Eosinophils % % Basophils % % Neutrophils # (1.3-7.7) k/uL Lymphocytes # (1.0-4.8) k/uL Monocytes # (0-1.0) k/uL Eosinophils # (0-0.7) k/uL Basophils # (0-0.2) k/uL PT (10.0-12.5) sec INR (<1.2) APTT (22.0-30.0) sec Sodium (137-145) mmol/L Potassium (3.5-5.1) mmol/L Chloride (98-107) mmol/L Carbon Dioxide (22-30) mmol/L Anion Gap mmol/L BUN (7-17) mg/dL Creatinine (0.52-1.04) mg/dL Est GFR (CKD-EPI)AfAm (>60 ml/min/1.73 sqM) Est GFR (CKD-EPI)NonAf (>60 ml/min/1.73 sqM) Glucose (74-99) mg/dL Calcium (8.4-10.2) mg/dL Magnesium (1.6-2.3) mg/dL Total Bilirubin (0.2-1.3) mg/dL AST (14-36) U/L ALT (4-34) U/L Alkaline Phosphatase (38-126) U/L Total Protein (6.3-8.2) g/dL Albumin (3.5-5.0) g/dL Urine Color Yellow Urine Appearance Cloudy H (Clear) Urine pH 5.5 (5.0-8.0) Ur Specific [place] 1.030 (1.001-1.035) Urine Protein Trace H (Negative) Urine Glucose (UA) 1+ H (Negative) Urine Ketones Trace H (Negative) Urine Blood Negative (Negative) Urine Nitrite Negative (Negative) Urine Bilirubin Negative (Negative) Urine Urobilinogen 4.0 (<2.0) mg/dL Ur Leukocyte Esterase Large H (Negative) Urine RBC 9 H (0-5) /hpf Urine WBC 63 H (0-5) /hpf Ur Squamous Epith Cells <1 (0-4) /hpf Amorphous Sediment Rare H (None) /hpf Urine Bacteria Occasional H (None) /hpf Urine Mucus Many H (None) /hpf Urine Opiates Screen Not Detected (NotDetected) Ur Oxycodone Screen Not Detected (NotDetected) Urine Methadone Screen Not Detected (NotDetected) Ur Barbiturates Screen Not Detected (NotDetected) U Tricyclic Antidepress Detected H (NotDetected) Ur Phencyclidine Scrn Not Detected (NotDetected) Ur Amphetamines Screen Not Detected (NotDetected) U Methamphetamines Scrn Not Detected (NotDetected) U Benzodiazepines Scrn Not Detected (NotDetected) Urine Cocaine Screen Not Detected (NotDetected) U Marijuana (THC) Screen Not Detected (NotDetected) Disposition Clinical Impression: UTI (urinary tract infection), Generalized weakness Disposition: ADMITTED IP TO THIS HOSP Condition: Stable Is patient prescribed a controlled substance at d/c from ED?: No
[2024-01-11 17:41] LABS: Basophils % (A) 0 %; Eosinophils % (A) 1 %; HGB 15.6 gm/dL (11.4-16.0); Lymphocytes % (A) 16 %; MCH 31.8 pg (25.0-35.0); MCHC 33.9 g/dL (31.0-37.0); MCV 93.9 fL (80.0-100.0); Mean Platelet Volume 7.8; Monocytes # (A) 0.4 k/uL (0-1.0); Monocytes % (A) 7 %; Neutrophils # (A) 4.5 k/uL (1.3-7.7); Neutrophils % (A) 75 %; Platelet Count 176 k/uL (150-450); RDW 14.5 % (11.5-15.5); WBC 6.1 k/uL (3.8-10.6)
[2024-01-11 17:52] LABS: INR 1.4 (<1.2); Partial Thromboplastin Time 30.7 sec (22.0-30.0); Prothrombin Time 14.3 sec (10.0-12.5)
[2024-01-11 17:57] LABS: ALT 18 U/L (4-34); AST 34 U/L (14-36); African American GFR (CKD) >90 (>60 ml/min/1.73 sqM); Alkaline Phosphatase 90 U/L (38-126); Anion Gap 8 mmol/L; Blood Urea Nitrogen 20 mg/dL (7-17); Calcium 9.1 mg/dL (8.4-10.2); Carbon Dioxide 20 mmol/L (22-30); Chloride 108 mmol/L (98-107); Glucose 105 mg/dL (74-99); Magnesium 1.9 mg/dL (1.6-2.3); Non-African American GFR(CKD) >90 (>60 ml/min/1.73 sqM); Potassium 4.1 mmol/L (3.5-5.1); Sodium 136 mmol/L (137-145); Total Protein 7.2 g/dL (6.3-8.2)
[2024-01-11 21:18] LABS: Amorphous Sediment,Urine Rare /hpf; Appearance,Urine Cloudy (Clear); Bacteria,Urine Occasional /hpf; Bilirubin,Urine Negative (Negative); Blood,Urine Negative (Negative); Color,Urine Yellow; Glucose,Urine (UA) 1+ (Negative); Ketones,Urine Trace (Negative); Leukocyte Esterase,Urine Large (Negative); Mucus,Urine Many /hpf; Nitrite,Urine Negative (Negative); PH, Urine 5.5 (5.0-8.0); Protein,Urine Trace (Negative); RBC,Urine 9 /hpf (0-5); Squamous Epithelial Cell,Urine <1 /hpf (0-4); WBC,Urine 63 /hpf (0-5)
[2024-01-11 21:32] LABS: Amphetamine Screen,Urine Not Detected (NotDetected); Barbiturate Screen,Urine Not Detected (NotDetected); Benzodiazepines Screen,Urine Not Detected (NotDetected); Cocaine Screen,Urine Not Detected (NotDetected); Methadone Screen, Urine Not Detected (NotDetected); Opiate Screen,Urine Not Detected (NotDetected); Oxycodone Screen, Urine Not Detected (NotDetected); Phencyclidine Screen,Urine Not Detected (NotDetected); Tricyclic Antidepressant,Urine Detected (NotDetected); Urn Cannabinoid Scrn Not Detected (NotDetected)
[2024-01-11] MEDS: SODIUM CHLORIDE 0.9% 1,000 ML IV SCH (22:32)
[2024-01-11] MEDS: cefTRIAXone IN SWFI 1,000 MG/10 ML SYRINGE IVP STA (22:33)
[2024-01-12] MEDS ORDERED: NALOXONE 0.4 MG/ML 1 ML VIAL IV PRN (00:04)
[2024-01-12] MEDS ORDERED: ACETAMINOPHEN TAB 325 MG TAB PO PRN (00:04)
[2024-01-12] MEDS ORDERED: MORPHINE SULFATE 4 MG/ML SYRINGE IV PRN (00:04)
[2024-01-12] MEDS ORDERED: IBUPROFEN 400 MG TAB PO PRN (00:04)
--- NOTE | 2024-01-12 11:10 | P.HPIM ---
History of Present Illness Patient is 68-year-old female was sent in from another hospital for further symptoms of delusions. Patient is alert oriented x 3 patient urine is slightly abnormal because of which patient is admitted with a concerns of urinary tract infection although patient does not have any symptoms of UTI that is suprapubic pain does not have any fever does not have any leukocytosis. Patient urine is slightly abnormal with slight some bacteria. Patient has a similar bacteria will not require any antibiotics antibiotics will be discontinued and patient symptoms of delusions are secondary to her bipolar disorder acute psychosis. Although patient is weak I will obtain PT and OT consultation. Patient is strong enough to go go home are to psychiatric floor after after psychiatric evaluation patient will be discharged accordingly. No other significant abnormality was seen in her blood test except for mildly elevated INR of 1.4 which is secondary to Xarelto she is taking for atrial fibrillation. REVIEW OF SYSTEMS: CONSTITUTIONAL: No fever, no malaise, no fatigue. HEENT: No recent visual problems or hearing problems. Denied any sore throat. CARDIOVASCULAR: No chest pain, orthopnea, PND, no palpitations, no syncope. PULMONARY: No shortness of breath, no cough, no hemoptysis. GASTROINTESTINAL: No diarrhea, no nausea, no vomiting, no abdominal pain. NEUROLOGICAL: No headaches, no weakness, no numbness. HEMATOLOGICAL: Denies any bleeding or petechiae. GENITOURINARY: Denies any burning micturition, frequency, or urgency. MUSCULOSKELETAL/RHEUMATOLOGICAL: Denies any joint pain, swelling, or any muscle pain. ENDOCRINE: Denies any polyuria or polydipsia. The rest of the 14-point review of systems is negative. PHYSICAL EXAMINATION: GENERAL: The patient is alert and oriented x3, not in any acute distress. Well developed, well nourished. HEENT: Pupils are round and equally reacting to light. EOMI. No scleral icterus. No conjunctival pallor. Normocephalic, atraumatic. No pharyngeal erythema. No thyromegaly. CARDIOVASCULAR: S1 and S2 present. No murmurs, rubs, or gallops. PULMONARY: Chest is clear to auscultation, no wheezing or crackles. ABDOMEN: Soft, nontender, nondistended, normoactive bowel sounds. No palpable organomegaly. MUSCULOSKELETAL: No joint swelling or deformity. EXTREMITIES: No cyanosis, clubbing, or pedal edema. NEUROLOGICAL: Gross neurological examination did not reveal any focal deficits. Patient has generalized weakness. Patient does have acute psychosis and delusions SKIN: No rashes. Assessment and plan Altered mental status: Patient does not have delirium patient probably has acute psychosis patient has delusions. Psychiatry will be consulted patient will be resumed on her Seroquel in the left. Patient has some right bacteria which will not require any antibiotics antibiotics will be discontinued. I do not believe patient has urinary tract infection at this time -Asymptomatic bacteriuria -Generalized weakness: PT and OT evaluation -Atrial fibrillation presently rate controlled probably paroxysmal A-fib patient will be resumed on her home Coreg and Xarelto. DVT prophylaxis: On anticoagulation as mentioned above Past Medical History Past Medical History: Atrial Fibrillation Additional Past Medical History / Comment(s): Patient thinks she has a history of CHF, PAD and DVT but is a poor historian and is unsure. History of Any Multi-Drug Resistant Organisms: None Reported Additional Past Surgical History / Comment(s): "3 c-sections and a knee surgery" Past Psychological History: Bipolar Smoking Status: Never smoker Past Alcohol Use History: Occasional Past Drug Use History: None Reported - Past Family History Sister(s) Family Medical History: Coronary Artery Disease (CAD), Myocardial Infarction (SD) Medications and Allergies Home Medications Medication Instructions Recorded Confirmed Type carvediloL [Coreg] 12.5 mg PO BID 01/11/23 01/12/24 History Potassium Chloride ER [K-Dur 10] 10 meq PO BID 01/08/24 01/12/24 History Rivaroxaban InitiationDose-VTE 15 mg PO DIRECTED #30 tab 01/10/24 01/12/24 Rx [Xarelto Initiation Dosing for VTE Treatment] Venlafaxine HCl [Effexor XR] 75 mg PO DAILY #30 cap 01/10/24 01/12/24 Rx Venlafaxine HCl [Effexor XR] 150 mg PO DAILY #30 cap 01/10/24 01/12/24 Rx Cephalexin [Keflex] 500 mg PO DIRECTED 01/12/24 01/12/24 History QUEtiapine [SEROquel] 25 mg PO DIRECTED 01/12/24 01/12/24 History Allergies Allergy/AdvReac Type Severity Reaction Status Date / Time amoxicillin [From Augmentin] AdvReac Diarrhea Verified 01/12/24 09:04 clavulanic acid AdvReac Diarrhea Verified 01/12/24 09:04 [From Augmentin] doxycycline AdvReac Diarrhea Verified 01/12/24 09:04 Physical Exam Vitals: Vital Signs Temp Pulse Pulse Resp BP BP Pulse Ox 01/12/24 08:00 97.6 F 73 16 143/91 98 01/12/24 06:00 77 11 L 126/97 99 01/12/24 04:00 76 18 140/85 100 01/12/24 02:00 76 18 134/87 99 01/12/24 01:00 74 18 134/87 99 01/12/24 00:41 78 18 141/88 99 01/11/24 20:05 76 18 130/87 96 01/11/24 16:27 97.5 F L 69 20 127/85 99 Intake and Output 01/11/24 01/12/24 01/12/24 22:59 06:59 14:59 Other: Weight 68.039 kg Results CBC & Chem 7: 01/11/24 17:33 01/11/24 17:33 Labs: Abnormal Lab Results - Last 24 Hours (Table) 01/11/24 01/11/24 01/11/24 Range/Units 17:33 17:33 20:53 PT 14.3 H (10.0-12.5) sec INR 1.4 H (<1.2) APTT 30.7 H (22.0-30.0) sec Sodium 136 L (137-145) mmol/L Chloride 108 H (98-107) mmol/L Carbon Dioxide 20 L (22-30) mmol/L BUN 20 H (7-17) mg/dL Creatinine 0.47 L (0.52-1.04) mg/dL Glucose 105 H (74-99) mg/dL Urine Appearance Cloudy H (Clear) Urine Protein Trace H (Negative) Urine Glucose (UA) 1+ H (Negative) Urine Ketones Trace H (Negative) Ur Leukocyte Esterase Large H (Negative) Urine RBC 9 H (0-5) /hpf Urine WBC 63 H (0-5) /hpf Amorphous Sediment Rare H (None) /hpf Urine Bacteria Occasional H (None) /hpf Urine Mucus Many H (None) /hpf U Tricyclic Antidepress (NotDetected) 01/11/24 Range/Units 20:53 PT (10.0-12.5) sec INR (<1.2) APTT (22.0-30.0) sec Sodium (137-145) mmol/L Chloride (98-107) mmol/L Carbon Dioxide (22-30) mmol/L BUN (7-17) mg/dL Creatinine (0.52-1.04) mg/dL Glucose (74-99) mg/dL Urine Appearance (Clear) Urine Protein (Negative) Urine Glucose (UA) (Negative) Urine Ketones (Negative) Ur Leukocyte Esterase (Negative) Urine RBC (0-5) /hpf Urine WBC (0-5) /hpf Amorphous Sediment (None) /hpf Urine Bacteria (None) /hpf Urine Mucus (None) /hpf U Tricyclic Antidepress Detected H (NotDetected)
[2024-01-12] MEDS: VENLAFAXINE HCL ER 75 MG CAP PO SCH (11:48)
[2024-01-12] MEDS: VENLAFAXINE HCL ER 150 MG CAP PO SCH (11:48)
--- NOTE | 2024-01-12 14:26 | P.CN ---
Psychiatric Consult - . Consult date: 01/12/24 Consult:: 01/12/24 14:15 ID: This is a 68-year-old female was in the emergency room for depression. Chief complaint I'm here because I'm just faking it wasn't really sick but I'm hopeless and I need help. History of present illness : She is not sure what she is trying the past that works. The patient has had a long-term history of depression and is currently being treated with 225 mg of Effexor however she forgets that most of the time and so it doesn't work. Symptoms the patient clearly has significant burn out. She is terribly anxious and ruminates around around and how she is faked it so now her outpatient doctor won't take care of her and she'll be charged for being in the hospital because she was faking. She feels very sad and hopeless but is not irritable she denies any suicidality or homicidality she just can't see any way forward. She complains that she has foggy and can't remember things, and that she has no plan. She has no motivation not drive no ability to enjoyanything. She denies any voices she denies any visions she denies any episodes of eliceo she has no delusions. Mental status exam: The patient knew that this was Saturday Father's Day and that she was in a [facility]. She could remember 3 of 3 objects after 5 minutes. When asked to abstract the proverb, " the grass looks greener on the other side of the fence." She said, "make the best of what you have." When asked how cats and snakes are like she said, "they are alive and I do not like either one." Her generativity is low from the depression but she is quite intelligent with above average IQ asked him to subtract 7 from 93 and she quickly got 86. For geography she could name all the [place] in the proper sequences. She knew that [place] and [place] join at [place]. She couldn't name the last 4 presidents and then made an excuse that she didn't like politics. Diagnosis major depression recurrent nonpsychotic. Assessment: I believe that she is a danger to herself because she has no hope no energy, slow to concentrate, slow to process, unable to plan, from the severe depression. She also has no capacity to remember and take her medications until they have a chance to work. She probably needs to come off the Effexor and be placed on Wellbutrin plus an SSRI for triple action and she has triple impairment to the depression. Plan: We don't have a bed here we need to older to he can get an inpatient bed on a psychiatric unit where they can get her on medicines to work and help her with some of her lack of resources.
[2024-01-12] MEDS: carvediloL 12.5 MG TAB PO SCH (17:32)
[2024-01-12] MEDS: QUEtiapine 25 MG TAB PO SCH (20:26)
[2024-01-12] MEDS: Rivaroxaban Initiation Dose--VTE 15 MG TAB PO SCH (23:02)
[2024-01-13 14:35] LABS: N. gonorrhoeae,PCR Negative (Negative)
[2024-01-13 14:37] LABS: C. trachomatis,PCR Negative (Negative)
[2024-01-13] MEDS ORDERED: QUEtiapine 25 MG TAB PO PRN (14:52)
--- NOTE | 2024-01-13 14:59 | P.PN ---
Progress Note - Text Progress Note Date: 01/13/24 Interval history: Patient was seen today for psychiatric follow-up asked by hospitalist. Patient was laying in bed today. Nurse claims that patient has been doing fairly well, no behavioral issues, has been taking medications not reporting any hallucinations or suicidal thoughts. Patient was agreeable to speak to com writer, she knew today's date her name and also location. She thought that the nurse at home wanted her to come into the hospital that is why she is here. At this time she is denying any depression, claims that her medications have been helping a bit, states that she does feel a bit better. She is future oriented, denying any suicidal homicidal ideations intent or plan. Denying any auditory or visual hallucinations. Claims that she is sleeping fairly at nighttime, denies any problems with appetite at this time. Mental Status Exam: General Appearance: Patient appears to be have thinning hair, stated age is alert, directable, and times to be cooperative. Adlee disheveled appearance Behavior: Patient is calmly seated without any agitated behavior. Attempts to cooperate. Speech: Patient's speech is fluent and nonpressured. Mood/Affect: Mood is fair and improving mildly, affect is congruent and constricted. Suicidality/Homicidality: Patient denies having any suicidal or homicidal ideation intent or plan. Perceptions: Patient denies any visual hallucinations and denies any auditory hallucinations Though content/process: There is no evidence of any delusional thought content and thought process is linear and goal-directed. Fairly concrete Memory and concentration: AOX3, grossly intact for the purposes of this session Judgment and insight: improving mildly Assessment Depressive disorder unspecified Plan: -At this time patient DOES NOT meet criteria for inpatient psychiatric admission. Patient is not reporting any suicidal homicidal ideations intent or plan, denying any auditory or visual hallucinations. -Delirium precautions recommended with patient including - avoiding use of narcotics and MEDICAL [employer]ICE SUPER[employer]OR sedatives, limit anticholinergic medications when possible, frequent re-orientation, minimize use of restraints, open window shades during the day and close them at night -Would recommend the following medication changes/additions: Added as needed dose of Seroquel daily for agitation/psychosis/insomnia. Continue with scheduled dose 25 mg nightly for insomnia/mood stabilization, continue with Effexor at current home dose -garden worker to provide patient with outpatient mental health/psychiatry resources for appropriate follow up upon discharge.SW also to ensure that the home environment is safe to return to for her prior to discharge -Communicated plan to patient's nurse -Psychiatry will sign off at this time -Please contact with any questions.
--- NOTE | 2024-01-13 21:05 | P.PN ---
Subjective Progress Note Date: 01/13/24 Patient is 68-year-old female was sent in from another hospital for further symptoms of delusions. Patient is alert oriented x 3 patient urine is slightly abnormal because of which patient is admitted with a concerns of urinary tract infection although patient does not have any symptoms of UTI that is suprapubic pain does not have any fever does not have any leukocytosis. Patient urine is slightly abnormal with slight some bacteria. Patient has a similar bacteria will not require any antibiotics antibiotics will be discontinued and patient symptoms of delusions are secondary to her bipolar disorder acute psychosis. Although patient is weak I will obtain PT and OT consultation. Patient is stron g enough to go go home are to psychiatric floor after after psychiatric evaluation patient will be discharged accordingly. No other significant abnormality was seen in her blood test except for mildly elevated INR of 1.4 which is secondary to Xarelto she is taking for atrial fibrillation. 01/13/2024 Patient is evaluated in follow up today. Has been evaluated by psychiatry in follow up with no further recommendations for IP psychiatric evaluation. Patient has been resumed on all home medications including oral xarelto 15 mg twice a day for the next 21 days than transition to xarelto 20 mg daily. Patient is currently pending PT/OT and social work follow up for discharge planning. Review of Systems Constitutional: Denied any fatigue denied any fever. Cardio vascular: denied any chest pain, palpitations Gastrointestinal: denied any nausea, vomiting, diarrhea Pulmonary: Denied any shortness of breath cough Neurologic denied any new focal deficits All inpatient medications were reviewed and appropriate changes in these medications as dictated in the interval history and assessment and plan PHYSICAL EXAMINATION: GENERAL: The patient is alert and oriented x3, not in any acute distress. Well developed, well nourished. HEENT: Pupils are round and equally reacting to light. EOMI. No scleral icterus. No conjunctival pallor. Normocephalic, atraumatic. No pharyngeal erythema. No th yromegaly. CARDIOVASCULAR: S1 and S2 present. No murmurs, rubs, or gallops. PULMONARY: Chest is clear to auscultation, no wheezing or crackles. ABDOMEN: Soft, nontender, nondistended, normoactive bowel sounds. No palpable organomegaly. MUSCULOSKELETAL: No joint swelling or deformity. EXTREMITIES: No cyanosis, clubbing, or pedal edema. NEUROLOGICAL: Gross neurological examination did not reveal any focal deficits. SKIN: No rashes. Assessment and plan -Altered mental status: Patient does not have delirium patient probably has acute psychosis patient has delusions. Psychiatry will be consulted patient was resumed on home medications for her bipolar. -Asymptomatic bacteriuria; which will not require any antibiotics antibiotics will be discontinued. I do not believe patient has urinary tract infection at this time. -Generalized weakness: PT and OT evaluation -Atrial fibrillation presently rate controlled probably paroxysmal A-fib patient will be resumed on her home Coreg and Xarelto. -Hx of PE recently started on xarelto patient has stopped taking her medications at home. GI prophylaxis DVT prophylaxis: On anticoagulation as mentioned above Full Code The impression and plan of care has been dictated by Lucretia Hoang, Nurse Practitioner as directed. Dr. Bela MD I have performed a history and physical examination and medical decision making of this patient, discussed the same with the dictator, and agree with the dictators assessment and plan as written, documented as a scribe. Based on total visit time, I have performed more than 50% of this visit. Objective - Vital Signs Vital signs: Vital Signs Temp 98.5 F 01/13/24 07:25 Pulse 70 01/13/24 09:53 Resp 16 01/13/24 09:53 BP 123/70 01/13/24 09:53 Pulse Ox 97 01/13/24 09:53 FiO2 Intake & Output 01/12/24 01/13/24 01/13/24 18:59 06:59 18:59 Intake Total 1200 Balance 1200 Intake: Intake, IV Titration 900 Amount Sodium Chloride 0.9% 1, 900 000 ml @ 100 mls/hr IV . [facility] Rx#:[id number] Oral 300 Other: # Voids 2 # Bowel Movements 0 - Labs CBC & Chem 7: 01/11/24 17:33 01/11/24 17:33 Labs: Microbiology - Last 24 Hours (Table) 01/11/24 20:53 Urine Culture - Final Urine,Voided 01/11/24 21:45 Blood Culture - Preliminary Blood 01/11/24 22:00 Blood Culture - Preliminary Blood Assessment and Plan Time with Patient: Less than 30
--- NOTE | 2024-01-14 20:35 | P.PN ---
Subjective Progress Note Date: 01/14/24 Patient is 68-year-old female was sent in from another hospital for further symptoms of delusions. Patient is alert oriented x 3 patient urine is slightly abnormal because of which patient is admitted with a concerns of urinary tract infection although patient does not have any symptoms of UTI that is suprapubic pain does not have any fever does not have any leukocytosis. Patient urine is slightly abnormal with slight some bacteria. Patient has a similar bacteria will not require any antibiotics antibiotics will be discontinued and patient symptoms of delusions are secondary to her bipolar disorder acute psychosis. Although patient is weak I will obtain PT and OT consultation. Patient is stron g enough to go go home are to psychiatric floor after after psychiatric evaluation patient will be discharged accordingly. No other significant abnormality was seen in her blood test except for mildly elevated INR of 1.4 which is secondary to Xarelto she is taking for atrial fibrillation. 01/13/2024 Patient is evaluated in follow up today. Has been evaluated by psychiatry in follow up with no further recommendations for IP psychiatric evaluation. Patient has been resumed on all home medications including oral xarelto 15 mg twice a day for the next 21 days than transition to xarelto 20 mg daily. Patient is currently pending PT/OT and social work follow up for discharge planning. 01/14/2024 Patient evaluated today in follow up on the medical floor. Patient evaluated by physical therapy with recommendations for subacute rehab. Had positive blood culture showing staph species and likely a contaminent species and we will continue to monitor off antibiotics at this time. No acute complaints. Hemodynamically stable. Review of Systems Constitutional: Denied any fatigue denied any fever. Cardio vascular: denied any chest pain, palpitations Gastrointestinal: denied any nausea, vomiting, diarrhea Pulmonary: Denied any shortness of breath cough Neurologic denied any new focal deficits All inpatient medications were reviewed and appropriate changes in these medications as dictated in the interval history and assessment and plan PHYSICAL EXAMINATION: GENERAL: The patient is alert and oriented x3, not in any acute distress. Well developed, well nourished. HEENT: Pupils are round and equally reacting to light. EOMI. No scleral icterus. No conjunctival pallor. Normocephalic, atraumatic. No pharyngeal erythema. No thyromegaly. CARDIOVASCULAR: S1 and S2 present. No murmurs, rubs, or gallops. PULMONARY: Chest is clear to auscultation, no wheezing or crackles. ABDOMEN: Soft, nontender, nondistended, normoactive bowel sounds. No palpable organomegaly. MUSCULOSKELETAL: No joint swelling or deformity. EXTREMITIES: No cyanosis, clubbing, or pedal edema. NEUROLOGICAL: Gross neurological examination did not reveal any focal deficits. SKIN: No rashes. Assessment and plan -Altered mental status: Patient does not have delirium patient probably has acute psychosis patient has delusions. Psychiatry will be consulted patient was resumed on home medications for her bipolar. -Asymptomatic bacteriuria; which will not require any antibiotics antibiotics will be discontinued. I do not believe patient has urinary tract infection at this time. -Generalized weakness: PT and OT evaluation -Atrial fibrillation presently rate controlled probably paroxysmal A-fib patient will be resumed on her home Coreg and Xarelto. -Hx of PE recently started on xarelto patient has stopped taking her medications at home. GI prophylaxis DVT prophylaxis: On anticoagulation as mentioned above Full Code Patient requires 3 night inpatient hospital stay before she can be discharged to subacute rehab. Patient has been flipped to inpatient. Repeat BMP in the AM. Watch blood cultures. The impression and plan of care has been dictated by Lucretia Hoang, Nurse Practitioner as directed. Dr. Bela MD I have performed a history and physical examination and medical decision making of this patient, discussed the same with the dictator, and agree with the dictators assessment and plan as written, documented as a scribe. Based on total visit time, I have performed more than 50% of this visit. Objective - Vital Signs Vital signs: Vital Signs Temp 98.0 F 01/14/24 19:28 Pulse 68 01/14/24 19:28 Resp 18 01/14/24 19:28 BP 111/76 01/14/24 19:28 Pulse Ox 96 01/14/24 19:28 FiO2 Intake & Output 01/14/24 01/14/24 01/15/24 06:59 18:59 06:59 Output Total 200 600 Balance -200 -600 Output: Urine 200 600 Other: Voiding Method External Catheter - Labs CBC & Chem 7: 01/11/24 17:33 01/11/24 17:33 Labs: Microbiology - Last 24 Hours (Table) 01/11/24 21:45 Blood Culture Gram Stain - Preliminary Blood Blood Culture - Preliminary Molecular ID 06/15/24 22:00 Blood Culture - Preliminary Blood Assessment and Plan Time with Patient: Less than 30
[2024-01-14] MEDS: METOPROLOL TARTRATE 50 MG TAB PO SCH (22:14)
[2024-01-15 08:42] LABS: Blood Urea Nitrogen 5.2 mg/dL (9.0-27.0); Carbon Dioxide 19.2 mmol/L (21.6-31.8); Chloride 109 mmol/L (96-109); Glucose 80 mg/dL (70-110); Potassium 3.5 mmol/L (3.5-5.5); Sodium 138 mmol/L (135-145)
[2024-01-15 08:43] LABS: Calcium 7.8 mg/dL (8.7-10.3)
[2024-01-15] MEDS: POTASSIUM CHLORIDE ER 20 MEQ TAB.ER PO STA (10:17)
--- NOTE | 2024-01-15 11:32 | P.PN ---
Subjective Progress Note Date: 01/15/24 Patient is 68-year-old female was sent in from another hospital for further symptoms of delusions. Patient is alert oriented x 3 patient urine is slightly abnormal because of which patient is admitted with a concerns of urinary tract infection although patient does not have any symptoms of UTI that is suprapubic pain does not have any fever does not have any leukocytosis. Patient urine is slightly abnormal with slight some bacteria. Patient has a similar bacteria will not require any antibiotics antibiotics will be discontinued and patient symptoms of delusions are secondary to her bipolar disorder acute psychosis. Although patient is weak I will obtain PT and OT consultation. Patient is stron g enough to go go home are to psychiatric floor after after psychiatric evaluation patient will be discharged accordingly. No other significant abnormality was seen in her blood test except for mildly elevated INR of 1.4 which is secondary to Xarelto she is taking for atrial fibrillation. 01/13/2024 Patient is evaluated in follow up today. Has been evaluated by psychiatry in follow up with no further recommendations for IP psychiatric evaluation. Patient has been resumed on all home medications including oral xarelto 15 mg twice a day for the next 21 days than transition to xarelto 20 mg daily. Patient is currently pending PT/OT and social work follow up for discharge planning. 01/14/2024 Patient evaluated today in follow up on the medical floor. Patient evaluated by physical therapy with recommendations for subacute rehab. Had positive blood culture showing staph species and likely a contaminent species and we will continue to monitor off antibiotics at this time. No acute complaints. Hemodynamically stable. 01/15/2024 Patient is evaluated in follow-up on the medical floor. Patient is recommended for subacute rehab and will require 3 days of inpatient hospital stay and will be able to be discharged on Saturday. Blood culture again showing contaminant species and patient will be monitored off antibiotics at this time. Patient complains that she is having difficulty urinating and has been continued on IV fluids we will recheck a bladder scan. Patient continues on oral Xarelto 15 mg twice a day to be ended on February 07 and on February 09, 2024 at 9 AM patient will be transition back to oral Xarelto 20 mg daily. Blood work today reveals a sodium level of 138, potassium 3.5, BUN of 5.2, creatinine of 0.4. Calcium 7.8. Review of Systems Constitutional: Denied any fatigue denied any fever. Cardio vascular: denied any chest pain, palpitations Gastrointestinal: denied any nausea, vomiting, diarrhea Pulmonary: Denied any shortness of breath cough Neurologic denied any new focal deficits All inpatient medications were reviewed and appropriate changes in these medicat ions as dictated in the interval history and assessment and plan PHYSICAL EXAMINATION: GENERAL: The patient is alert and oriented x3, not in any acute distress. Well developed, well nourished. HEENT: Pupils are round and equally reacting to light. EOMI. No scleral icterus. No conjunctival pallor. Normocephalic, atraumatic. No pharyngeal erythema. No thyromegaly. CARDIOVASCULAR: S1 and S2 present. No murmurs, rubs, or gallops. PULMONARY: Chest is clear to auscultation, no wheezing or crackles. ABDOMEN: Soft, nontender, nondistended, normoactive bowel sounds. No palpable organomegaly. MUSCULOSKELETAL: No joint swelling or deformity. EXTREMITIES: No cyanosis, clubbing, or pedal edema. NEUROLOGICAL: Gross neurological examination did not reveal any focal deficits. SKIN: No rashes. Assessment and plan -Altered mental status: Secondary to delirium and psychosis patient had stopped taking her medication for her bipolar for the last few days outpatient. Since this is been resumed patient is now alert x 3. Karie martinez evaluated this patient -Asymptomatic bacteriuria; which will not require any antibiotics antibiotics will be discontinued. I do not believe patient has urinary tract infection at this time. -Gram positive bacteremia on 1/2 cultures showing coagulase negative staph 1 and 2 and this is likely a contaminent species with no clinical indicators of sepsis. Monitored off antibiotics. -Generalized weakness: PT and OT evaluation recommending subacute rehab -Atrial fibrillation presently rate controlled probably paroxysmal A-fib patient will be resumed on her home Coreg and Xarelto. -PE recently started on xarelto patient has stopped taking her medications at home. she will continue xarelto 15 mg BID until 02/08/2024 and than begin xarelto 20 mg daily on 02/09/2024 GI prophylaxis DVT prophylaxis: On anticoagulation as mentioned above Full Code Patient requires 3 night inpatient hospital stay before she can be discharged to subacute rehab. Patient has been flipped to inpatient. Earliest D/C date on Saturday. Repeat BMP in the AM. Watch blood cultures. Monitor for urinary retention post void residuals and bladder scan Q6h. The impression and plan of care has been dictated by Lucretia Hoang Nurse Practitioner as directed. Dr. Bela MD I have performed a history and physical examination and medical decision making of this patient, discussed the same with the dictator, and agree with the dictators assessment and plan as written, documented as a scribe. Based on total visit time, I have performed more than 50% of this visit. Objective - Vital Signs Vital signs: Vital Signs Temp 97.5 F L 01/15/24 07:25 Pulse 67 01/15/24 07:25 Resp 16 01/15/24 07:25 BP 101/68 01/15/24 07:25 Pulse Ox 97 01/15/24 07:25 FiO2 Intake & Output 01/14/24 01/15/24 01/15/24 18:59 06:59 18:59 Output Total 600 550 Balance -600 -550 Output: Urine 600 550 Straight 500 Other: Voiding Method Diaper External Catheter - Labs CBC & Chem 7: 01/11/24 17:33 01/15/24 06:00 Labs: Abnormal Lab Results - Last 24 Hours (Table) 01/15/24 Range/Units 06:00 Carbon Dioxide 19.2 L (21.6-31.8) mmol/L BUN 5.2 L (9.0-27.0) mg/dL Creatinine 0.4 L (0.6-1.5) mg/dL Calcium 7.8 L (8.7-10.3) mg/dL Microbiology - Last 24 Hours (Table) 01/11/24 21:45 Blood Culture Gram Stain - Final Blood Blood Culture - Final Coagulase Negative Staph Coagulase Negative Staph#2 Molecular ID 01/11/24 22:00 Blood Culture - Preliminary Blood Assessment and Plan Time with Patient: Less than 30
--- NOTE | 2024-01-16 17:56 | P.PN ---
Progress Note - Text Progress Note Date: 01/16/24 Patient is 68-year-old female was sent in from another hospital for further symptoms of delusions. Patient is alert oriented x 3 patient urine is slightly abnormal because of which patient is admitted with a concerns of urinary tract infection although patient does not have any symptoms of UTI that is suprapubic pain does not have any fever does not have any leukocytosis. Patient urine is slightly abnormal with slight some bacteria. Patient has a similar bacteria will not require any antibiotics antibiotics will be discontinued and patient symptoms of delusions are secondary to her bipolar disorder acute psychosis. Although patient is weak I will obtain PT and OT consultation. Patient is strong enough to go go home are to psychiatric floor after after psychiatric evaluation patient will be discharged accordingly. No other significant abnormality was seen in her blood test except for mildly elevated INR of 1.4 which is secondary to Xarelto she is taking for atrial fibrillation. 01/13/2024 Patient is evaluated in follow up today. Has been evaluated by psychiatry in follow up with no further recommendations for IP psychiatric evaluation. Patient has been resumed on all home medications including oral xarelto 15 mg twice a day for the next 21 days than transition to xarelto 20 mg daily. Patient is currently pending PT/OT and social work follow up for discharge planning. 01/14/2024 Patient evaluated today in follow up on the medical floor. Patient evaluated by physical therapy with recommendations for subacute rehab. Had positive blood culture showing staph species and likely a contaminent species and we will continue to monitor off antibiotics at this time. No acute complaints. Hemodynamically stable. 01/15/2024 Patient is evaluated in follow-up on the medical floor. Patient is recommended for subacute rehab and will require 3 days of inpatient hospital stay and will be able to be discharged on Saturday. Blood culture again showing contaminant species and patient will be monitored off antibiotics at this time. Patient complains that she is having difficulty urinating and has been continued on IV fluids we will recheck a bladder scan. Patient continues on oral Xarelto 15 mg twice a day to be ended on February 07 and on February 09, 2024 at 9 AM patient will be transition back to oral Xarelto 20 mg daily. Blood work today reveals a sodium level of 138, potassium 3.5, BUN of 5.2, creatinine of 0.4. Calcium 7.8. January 15: Up in chair. Eating some. No new issues. Plan for discharge to rehab tomorrow. Active Medications Acetaminophen (Acetaminophen Tab 325 Mg Tab) 650 mg PO Q6HR PRN PRN Reason: Mild Pain or Fever > 100.5 Sodium Chloride (Saline 0.9%) 1,000 mls @ 100 mls/hr IV .Q10H [facility] Last Admin: 01/16/24 10:17 Dose: 100 mls/hr Ibuprofen (Ibuprofen 400 Mg Tab) 400 mg PO Q6HR PRN PRN Reason: Mild Pain or Fever > 100.5 Metoprolol Tartrate (Metoprolol Tartrate 50 Mg Tab) 50 mg PO BID [facility] Last Admin: 01/16/24 08:52 Dose: 50 mg Naloxone HCl (Naloxone 0.4 Mg/Ml 1 Ml Vial) 0.2 mg IV Q2M PRN PRN Reason: Opioid Reversal Quetiapine Fumarate (Quetiapine 25 Mg Tab) 25 mg PO HS [facility] Last Admin: 01/15/24 20:25 Dose: 25 mg Quetiapine Fumarate (Quetiapine 25 Mg Tab) 25 mg PO DAILY PRN PRN Reason: Agitation/insomnia/psychosis Rivaroxaban (Rivaroxaban Initiation Dose--Vte 15 Mg Tab) 15 mg PO BID [facility]; Taper Stop: 02/08/24 08:59 Last Admin: 01/16/24 10:16 Dose: 15 mg Venlafaxine HCl (Venlafaxine Hcl Er 75 Mg Cap) 75 mg PO DAILY [facility] Last Admin: 01/16/24 08:52 Dose: 75 mg Venlafaxine HCl (Venlafaxine Hcl Er 150 Mg Cap) 150 mg PO DAILY [facility] Last Admin: 01/16/24 08:52 Dose: 150 mg On examination: VITAL SIGNS: [98.3, 65, 16, 108/74, 95% room air] GENERAL APPEARANCE: Up in chair. Comfortable HEENT: Normal external appearance of nose and ear. Oral cavity normal EYES: Pupils equal. Conjunctiva normal. NECK: JVD not raised. Mass not palpable. RESPIRATORY: Respiratory effort normal. Lungs clear to auscultation. CARDIOVASCULAR: First and second sounds normal. No edema. ABDOMEN: Soft. Liver and spleen not palpable. No tenderness. No mass palpable. PSYCHIATRY: Able to answer simple questions INVESTIGATIONS, reviewed in the clinical context: January 14: Potassium 3.5 BUN 5.2 creatinine 0.4 COVID-19 PCR, chlamydia DNA, gonorrhea DNA, Treponema pallidum antibody: All negative January 10: White count 6.1 hemoglobin 15.6 platelets 136 Assessment and plan -Altered mental status: Secondary to delirium and psychosis patient had stopped taking her medication for her bipolar for the last few days outpatient. Since this is been resumed patient is now alert x 3. Psychiatry evaluated this patient -Asymptomatic bacteriuria; which will not require any antibiotics antibiotics will be discontinued. I do not believe patient has urinary tract infection at this time. -Gram positive bacteremia on 07/30 cultures showing coagulase negative staph 1 and 2 and this is likely a contaminent species with no clinical indicators of sepsis. Monitored off antibiotics. -Acute asthenia: PT and OT evaluation recommending subacute rehab -Atrial fibrillation presently rate controlled probably paroxysmal A-fib patient will be resumed on her home Coreg and Xarelto. -PE recently started on xarelto patient has stopped taking her medications at home. -Full code Patient requiring 3 night stay. Plan for discharge to rehab tomorrow.
[2024-01-17 07:53] VITALS: PULSE 66
[2024-01-17 13:29] VITALS: BP 118/80; RESP 18; TEMP 98.1
--- NOTE | 2024-01-17 13:50 | P.DS ---
Providers Date of admission: 01/14/24 09:47 Expected date of discharge: 01/17/24 Attending physician: Abhijit Lewis Consults: 01/12/24 10:17 Consult Physician Routine Consulting Provider: Psychiatry - [facility] Psychiatry Consult Reason/Comments: AMS, making delusional statements Do you want consulting provider notified?: Yes Primary care physician: Smith Andres [facility] Course: Patient is 68-year-old female was sent in from another hospital for further symptoms of delusions. Patient is alert oriented x 3 patient urine is slightly abnormal because of which patient is admitted with a concerns of urinary tract infection although patient does not have any symptoms of UTI that is suprapubic pain does not have any fever does not have any leukocytosis. Patient urine is slightly abnormal with slight some bacteria. Patient has a similar bacteria will not require any antibiotics antibiotics will be discontinued and patient symptoms of delusions are secondary to her bipolar disorder acute psychosis. Although patient is weak I will obtain PT and OT consultation. Patient is strong enough to go go home are to psychiatric floor after after psychiatric evaluation patient will be discharged accordingly. No other significant abnormality was seen in her blood test except for mildly elevated INR of 1.4 which is secondary to Xarelto she is taking for atrial fibrillation. 01/13/2024 Patient is evaluated in follow up today. Has been evaluated by psychiatry in follow up with no further recommendations for IP psychiatric evaluation. Patient has been resumed on all home medications including oral xarelto 15 mg twice a day for the next 21 days than transition to xarelto 20 mg daily. Patient is currently pending PT/OT and social work follow up for discharge planning. 01/14/2024 Patient evaluated today in follow up on the medical floor. Patient evaluated by physical therapy with recommendations for subacute rehab. Had positive blood culture showing staph species and likely a contaminent species and we will continue to monitor off antibiotics at this time. No acute complaints. Hemodynamically stable. 01/15/2024 Patient is evaluated in follow-up on the medical floor. Patient is recommended for subacute rehab and will require 3 days of inpatient hospital stay and will be able to be discharged on Saturday. Blood culture again showing contaminant species and patient will be monitored off antibiotics at this time. Patient complains that she is having difficulty urinating and has been continued on IV fluids we will recheck a bladder scan. Patient continues on oral Xarelto 15 mg twice a day to be ended on February 07 and on February 09, 2024 at 9 AM patient will be transition back to oral Xarelto 20 mg daily. Blood work today reveals a sodium level of 138, potassium 3.5, BUN of 5.2, creatinine of 0.4. Calcium 7.8. January 15: Up in chair. Eating some. No new issues. Plan for discharge to rehab tomorrow. January 16: Reclining in bed. Eating fair. Discussed with patient. On examination: VITAL SIGNS: 98.1, 66, 18, 1 one 8 x 80, 100% room air GENERAL APPEARANCE: In bed comfortable HEENT: Normal external appearance of nose and ear. Oral cavity normal EYES: Pupils equal. Conjunctiva normal. NECK: JVD not raised. Mass not palpable. RESPIRATORY: Respiratory effort normal. Lungs clear to auscultation. CARDIOVASCULAR: First and second sounds normal. No edema. ABDOMEN: Soft. Liver and spleen not palpable. No tenderness. No mass palpable. PSYCHIATRY: Able to answer simple questions INVESTIGATIONS, reviewed in the clinical context: January 14: Potassium 3.5 BUN 5.2 creatinine 0.4 COVID-19 PCR, chlamydia DNA, gonorrhea DNA, Treponema pallidum antibody: All negative January 10: White count 6.1 hemoglobin 15.6 platelets 136 Assessment and plan -Altered mental status: Secondary to delirium and psychosis patient had stopped taking her medication for her bipolar for the last few days outpatient. Since this is been resumed patient is now alert x 3. Psychiatry evaluated this patient -Asymptomatic bacteriuria; which will not require any antibiotics antibiotics will be discontinued. I do not believe patient has urinary tract infection at this time. -Gram positive bacteremia on 07/30 cultures showing coagulase negative staph 1 and 2 and this is likely a contaminent species with no clinical indicators of sepsis. Monitored off antibiotics. -Acute asthenia: PT and OT evaluation recommending subacute rehab -Atrial fibrillation presently rate controlled probably paroxysmal A-fib patient will be resumed on her home Coreg and Xarelto. -PE recently started on xarelto patient has stopped taking her medications at home. -Full code Dispo patient: [facility]. Plan - Discharge Summary New Discharge Prescriptions: New QUEtiapine [SEROquel] 25 mg PO DAILY PRN tab PRN Reason: Agitation/insomnia/psychosis Pantoprazole [Protonix] 40 mg PO DAILY #30 tab Metoprolol Tartrate [Lopressor] 50 mg PO BID #60 tab Rivaroxaban InitiationDose-VTE [Xarelto Initiation Dosing for VTE Treatment] 15 mg PO BID 21 Days #42 tab Continue Venlafaxine HCl [Effexor XR] 75 mg PO DAILY #30 cap Potassium Chloride ER [K-Dur 10] 10 meq PO BID Venlafaxine HCl [Effexor XR] 150 mg PO DAILY #30 cap QUEtiapine [SEROquel] 25 mg PO DIRECTED Discontinued carvediloL [Coreg] 12.5 mg PO BID Rivaroxaban InitiationDose-VTE [Xarelto Initiation Dosing for VTE Treatment] 15 mg PO DIRECTED #30 tab Cephalexin [Keflex] 500 mg PO DIRECTED Discharge Medication List Potassium Chloride ER [K-Dur 10] 10 meq PO BID 01/08/24 [History] Venlafaxine HCl [Effexor XR] 75 mg PO DAILY #30 cap 01/10/24 [Rx] Venlafaxine HCl [Effexor XR] 150 mg PO DAILY #30 cap 01/10/24 [Rx] QUEtiapine [SEROquel] 25 mg PO DIRECTED 01/12/24 [History] Pantoprazole [Protonix] 40 mg PO DAILY #30 tab 01/13/24 [Rx] QUEtiapine [SEROquel] 25 mg PO DAILY PRN tab 01/13/24 [Rx] Rivaroxaban InitiationDose-VTE [Xarelto Initiation Dosing for VTE Treatment] 15 mg PO BID 21 Days #42 tab 01/13/24 [Rx] Metoprolol Tartrate [Lopressor] 50 mg PO BID #60 tab 01/17/24 [Rx] Follow up Appointment(s)/Referral(s): Smith Beasley DO [Primary Care Provider] - 1-2 days Discharge/Stand Alone Forms: Community Resources, Help In The Home, Outpatient Counseling
== END 2024-01-17 15:43 | DRG 885 ==
LOC: EC 16:16 → 5NMEDONC 01-12 00:05 → OBSVTOIN 01-14 09:47
PROVIDERS: ADMIT Hospitalist; ATTEND Hospitalist
DX: F23 Brief psychotic disorder (principal); F05 Delirium due to known physiological condition; R82.71 Bacteriuria; F31.9 Bipolar disorder, unspecified; I48.0 Paroxysmal atrial fibrillation; Z91.128 Patient's intentional underdosing of medication regimen for other reason; R79.1 Abnormal coagulation profile; G47.00 Insomnia, unspecified; Z79.899 Other long term (current) drug therapy; Z79.01 Long term (current) use of anticoagulants; Z82.49 Family history of ischemic heart disease and other diseases of the circulatory system; Z86.711 Personal history of pulmonary embolism; Z88.1 Allergy status to other antibiotic agents; Z88.8 Allergy status to other drugs, medicaments and biological substances
CPT/HCPCS: 36415; 80048; 80053; 80306; 81001; 83735; 85025; 85610; 85730; 86780; 87040; 87086; 87491; 87591; 87635; 96361; 96374; 99285

== ENCOUNTER 2024-06-22 18:17 | Emergency (ER) | payer MEDICARE, OTHER ==
--- NOTE | 2024-06-22 19:19 | ED ---
General Adult HPI - General Chief complaint: Psychiatric Symptoms Stated complaint: AMS,Mental health eval Time Seen by Provider: 06/22/24 18:24 Source: EMS Mode of arrival: EMS - History of Present Illness Initial comments: Dictation was produced using [employer] dictation software. please excuse any grammatical, word or spelling errors. Chief Complaint: 69-year-old female transferred from [facility] for neuropsychiatric evaluation History of Present Illness: Patient 69-year-old female presents to the emergency department as a transfer from [facility]. Patient initially presented there for altered mental status. According to transfer documentation she had been altered. Patient's at the bedside states that patient has been having altered mental status for the last 3 days. She does have a history of psychiatric illness. She has been admitted to inpatient psych in the past. Patient extensive altered mental status workup found to be unremarkable. She was transferred here for psychiatric evaluation. Patient states that she was faking and she did not want to come. Patient was given chemical sedation. The ROS documented in this emergency department record has been reviewed and confirmed by me. Those systems with pertinent positive or negative responses have been documented in the HPI. All other systems are other negative and/or noncontributory. - Related Data Home Medications Medication Instructions Recorded Confirmed No Known Home Medications 06/22/24 06/22/24 Allergies Allergy/AdvReac Type Severity Reaction Status Date / Time amoxicillin [From Augmentin] AdvReac Diarrhea Verified 06/22/24 19:49 clavulanic acid AdvReac Diarrhea Verified 06/22/24 19:49 [From Augmentin] doxycycline AdvReac Diarrhea Verified 06/22/24 19:49 Review of Systems ROS Statement: Those systems with pertinent positive or pertinent negative responses have been documented in the HPI. ROS Other: All systems not noted in ROS Statement are negative. Past Medical History Past Medical History: Atrial Fibrillation Additional Past Medical History / Comment(s): Patient thinks she has a history of CHF, PAD and DVT but is a poor historian and is unsure. States PE summer, unknown if fully treated for it. History of Any Multi-Drug Resistant Organisms: None Reported Additional Past Surgical History / Comment(s): "3 c-sections and a knee surgery" Past Psychological History: Bipolar Smoking Status: Never smoker Past Alcohol Use History: Rare Past Drug Use History: None Reported - Past Family History Sister(s) Family Medical History: Coronary Artery Disease (CAD), Myocardial Infarction ([place]) General Exam - General Exam Comments Initial Comments: PHYSICAL EXAM: General Impression: Alert and oriented x3, not in acute distress HEENT: Normocephalic atraumatic, extra-ocular movements intact, pupils equal and reactive to light bilaterally, mucous membranes moist. Cardiovascular: Heart regular rate and rhythm Chest: Able to complete full sentences, no retractions, no tachypnea Abdomen: abdomen soft, non-tender, non-distended, no organomegaly Musculoskeletal: Pulses present and equal in all extremities, no peripheral edema Motor: no focal deficits noted Neurological: CN II-XII grossly intact, no focal motor or sensory deficits noted Skin: Intact with no visualized rashes Psych: Normal affect and mood Course Vital Signs 06/22/24 06/22/24 18:21 19:28 Temperature 97.9 F 97.6 F Pulse Rate 100 98 Respiratory 20 19 Rate Blood Pressure 148/85 136/85 O2 Sat by Pulse 100 98 Oximetry Medical Decision Making - Medical Decision Making Was pt. sent in by a medical professional or institution (, PA, CUPOLA OPERATOR, urgent care, hospital, or correction...) When possible be specific @ -Outside emergency room Did you speak to anyone other than the patient for history (EMS, parent, family, police, friend...)? What history was obtained from this source @ -No Did you review nursing and triage notes (agree or disagree)? Why? @ -I reviewed and agree with nursing and triage notes Were old charts reviewed (outside hosp., previous admission, EMS record, old EKG, old radiological studies, urgent care reports/EKG's, correction records)? Report findings @ -Transfer documentation reviewed Differential Diagnosis (chest pain, altered mental status, abdominal pain women, abdominal pain men, vaginal bleeding, musculoskeletal, weakness, fever, dyspnea, syncope, headache, dizziness, GI bleed, back pain, seizure, CVA, palpatations, mental health)? @ -Differential Mental Health: Depression, anxiety, bipolar, psychosis, schizophrenia, borderline personality, situational depression, adjustment disorder, behavioral disorder, brain tumor, malingering, substance abuse, encephalopathy, medication reaction, dementia, hypothyroidism, degenerative neurologic disorder, lupus.... This is not meant to be all-inclusive list EKG interpreted by me (3pts min.). @ -None done X-rays interpreted by me (1pt min.). @ -None done CT interpreted by me (1pt min.). @ -None done U/S interpreted by me (1pt. min.). @ -None done What testing was considered but not performed or refused? (CT, X-rays, U/S, labs)? Why? @ -None What meds were considered but not given or refused? Why? @ -None Was smoking cessation discussed for >3mins.? @ -No Were there social determinants of health that impacted care today? How? (Homeles sness, low income, unemployed, alcoholism, drug addiction, transportation, low edu. Level, literacy, decrease access to med. care, correction, rehab)? @ -No Was there de-escalation of care discussed even if they declined (Discuss DNR or withdrawal of care, Hospice)? DNR status @ -No What co-morbidities impacted this encounter? (DM, HTN, Smoking, COPD, CAD, Cancer, CVA, ARF, Chemo, Hep., AIDS, mental health diagnosis, sleep apnea, morbid obesity)? @ -None Was patient admitted / discharged? Hospital course, mention meds given and route, prescriptions, significant lab abnormalities, going to OR and other pertinent info. @ -69-year-old female presents to the emergency department for psychiatric evaluation. Patient was a transfer from [facility] for altered mental status. Vital signs stable. Patient extensive workup found to be unremarkable. She was given sedation medications. Patient awake alert oriented at the bedside. Physical exam is unremarkable. Patient denies any issues. States that she was faking it and did not want to be transferred. Patient will be cleared for EPS evaluation. Chart view was performed patient has history of psychiatric illness. Patient evaluated by EPS recommended discharge. Patient interviewed at the bedside states that she is very apologetic for which she did states that she was frustrated with her ex- and did not know what to do felt like she does this when she is in a state of panic. Patient requesting to be discharged. She denies any complaints at this time. Did you discuss the management of the patient with other professionals (professionals i.e. , PA, CUPOLA OPERATOR, lab, RT, psych nurse, social welfare research worker, car spotter, teacher, command center officer, case technician)? Give summary @ -Case discussed with EPS recommended discharge Was critical care preformed (if so, how long)? @ -No Undiagnosed new problem with uncertain prognosis? @ -No Drug Therapy requiring intensive monitoring for toxicity (Heparin, Nitro, Insuli n, Cardizem)? @ -No Were any procedures done? @ -No Diagnosis/symptom? Acute, or Chronic, or Acute on Chronic? Uncomplicated (without systemic symptoms) or Complicated (systemic symptoms)? @ -Altered mental status Side effects of treatment? @ -No Exacerbation, Progression, or Severe Exacerbation? @ -No Poses a threat to life or bodily function? How? (Chest pain, [place], [place], pneumonia, PE, COPD, DKA, ARF, appy, cholecystitis, CVA, Diverticulitis, Homicidal, Suicidal, threat to staff... and all critical care pts) @ -No Disposition Clinical Impression: AMS (altered mental status) Disposition: HOME SELF-CARE Condition: Good Instructions (If sedation given, give patient instructions): Medical Clearance for Psychiatric Care (ED), Altered Mental Status (ED) Is patient prescribed a controlled substance at d/c from ED?: No Referrals: Smith Rogel DO [Primary Care Provider] - 1-2 days Time of Disposition: 21:55
[2024-06-22 22:42] VITALS: BP 167/89; PULSE 107; RESP 20; TEMP 98
== END 2024-06-22 22:35 | disposition home or self-care (01) ==
LOC: EC 18:17
DX: R41.82 Altered mental status, unspecified (principal); Z88.0 Allergy status to penicillin; Z88.1 Allergy status to other antibiotic agents; Z88.8 Allergy status to other drugs, medicaments and biological substances
CPT/HCPCS: 82075; 99285